=== PATIENT | female | born 1950 | race Caucasian/White ===

== ENCOUNTER 2024-10-03 07:33 | Inpatient (IN) ==
--- NOTE | 2024-09-15 12:53 | PAT Medication Instructions ---
Medication Instructions Date of Service September 15, 2024 Home Medications B-complex with vitamin C 1 tab PO DAILY acetaminophen 650 mg tablet,extended release 650 mg PO HS aspirin 81 mg capsule 81 mg PO QAM atorvastatin 10 mg tablet 10 mg PO HS bupropion HCl 300 mg 24 hr tablet, extended release 300 mg PO QAM cholecalciferol (vitamin D3) 50 mcg (2,000 unit) capsule (Vitamin D3) 50 mcg PO QAM doxepin 75 mg capsule 75 mg PO HS eszopiclone 3 mg tablet 3 mg PO HS loperamide 2 mg capsule 1 mg PO Q2D kjgmiazz-vhk-tieh-FA-Ca carb-vit K 18 mg iron-400 mcg-500 mg tablet 1 tab PO DAILY prazosin 1 mg capsule 1 mg PO HS turmeric root extract 500 mg capsule 500 mg PO QAM venlafaxine 150 mg tablet,extended release 24 hr 150 mg PO QAM venlafaxine 75 mg tablet 75 mg PO QAM ASK your prescriber and surgeon aspirin 81 mg capsule 81 mg PO QAM STOP taking 2 weeks before surgery (or as soon as possible if surgery is within 2 weeks) turmeric root extract 500 mg capsule 500 mg PO QAM DO NOT take the morning of surgery B-complex with vitamin C 1 tab PO DAILY cholecalciferol (vitamin D3) 50 mcg (2,000 unit) capsule (Vitamin D3) 50 mcg PO QAM loperamide 2 mg capsule 1 mg PO Q2D pvclrboa-vld-ifxb-FA-Ca carb-vit K 18 mg iron-400 mcg-500 mg tablet 1 tab PO DAILY Take morning of surgery With a small sip of water, OTHERWISE NOTHING TO EAT OR DRINK AFTER MIDNIGHT: bupropion HCl 300 mg 24 hr tablet, extended release 300 mg PO QAM venlafaxine 150 mg tablet,extended release 24 hr 150 mg PO QAM venlafaxine 75 mg tablet 75 mg PO QAM Take evening before surgery acetaminophen 650 mg tablet,extended release 650 mg PO HS atorvastatin 10 mg tablet 10 mg PO HS doxepin 75 mg capsule 75 mg PO HS eszopiclone 3 mg tablet 3 mg PO HS prazosin 1 mg capsule 1 mg PO HS Other Notes If you have any questions please call us at [phone] or [phone] or [phone] or [phone]
--- NOTE | 2024-09-18 13:19 | Anesthesiology Consultation ---
Date of Service September 18, 2024 Assessment & Plan (1) Encounter for pre-operative examination: Chart Review Chart Review: Acceptable Risk for Surgery (pending surgeon ordered PCP clearance ) and Patient seen in Pre Admission Testing - Awaiting PCP clearance 09/29/24 (Emma Toth) - please fax preop testing to PCP for review Per PAT appt on 09/18/24, no recent illness/disease exposures, illness related symptoms, or recent illness/disease positive tests. Will leave to surgeon's discretion if preop Covid testing needed Teaching & Discussion Pre-Anesthesia Teaching/Discussion Notes: Instructed NPO after midnight before surgery,except medications with 15 cc of water. Medication instructions provided according to the PAT guidelines. History Surgery Operation Date: 10/03/24 11:35 Proposed Procedures p L3-L4 Decompression and Fusion - Torres Stoddard, Height/Weight Height: 5 ft 7 in Weight: 78.9 kg Allergies Allergy/AdvReac Type Severity Reaction Status Date / Time Sulfa (Sulfonamide Allergy Hives Verified 09/16/24 15:25 Antibiotics) tetracycline Allergy Unknown Verified 09/16/24 15:25 Medications Home Medications Medication Instructions Recorded Confirmed Last Taken B-complex with vitamin C 1 tab PO DAILY 09/15/24 09/15/24 Unknown acetaminophen 650 mg 650 mg PO HS 09/15/24 09/15/24 Unknown tablet,extended release aspirin 81 mg capsule 81 mg PO QAM 09/15/24 09/15/24 Unknown atorvastatin 10 mg tablet 10 mg PO HS 09/15/24 09/15/24 Unknown bupropion HCl 300 mg 24 hr tablet, 300 mg PO QAM 09/15/24 09/15/24 Unknown extended release cholecalciferol (vitamin D3) 50 50 mcg PO QAM 09/15/24 09/15/24 Unknown mcg (2,000 unit) capsule (Vitamin D3) doxepin 75 mg capsule 75 mg PO HS 09/15/24 09/15/24 Unknown eszopiclone 3 mg tablet 3 mg PO HS 09/15/24 09/15/24 Unknown loperamide 2 mg capsule 1 mg PO Q2D 09/15/24 09/15/24 Unknown jdfjcbbz-srl-cknh-FA-Ca carb-vit K 1 tab PO DAILY 09/15/24 09/15/24 Unknown 18 mg iron-400 mcg-500 mg tablet prazosin 1 mg capsule 1 mg PO HS 09/15/24 09/15/24 Unknown turmeric root extract 500 mg 500 mg PO QAM 09/15/24 09/15/24 Unknown capsule venlafaxine 150 mg tablet,extended 150 mg PO QAM 09/15/24 09/15/24 Unknown release 24 hr venlafaxine 75 mg tablet 75 mg PO QAM 09/15/24 09/15/24 Unknown Past Medical History Medical History History of asthma prn inh > not used since summer 2023 History of COVID-19 2019 or 2020, no residual symptoms History of depression Hx of gastroesophageal reflux (GERD) well controlled and stable Hx of hyperlipidemia Hx of insomnia Hx of irritable bowel syndrome Hx of migraines Mood swings hx Exercise / Class Metabolic Activity III < 4 Walking/Shop/Light housework (one flight of stairs- no chest pain or SOB- goes slow ) Past Surgical History Surgical History History of bilateral tubal ligation History of esophagogastroduodenoscopy (EGD) History of Alexy fundoplication ~2019 History of total right knee replacement Hx laparoscopic cholecystectomy Hx of bilateral cataract extraction Hx of colonoscopy Hx of right inguinal hernia repair Hx of thumb surgery rt hand Hx of tonsillectomy Past Anesthesia History No Hx of Anesthesia Complications and No Family Hx of Anesthesia Complications History of PONV No Hx of PONV and No Hx of Motion Sickness Social History Smoking Status: Never smoker Do You Dip or Chew Tobacco: No Hx Alcohol Use: Yes Alcohol type: wine alcohol intake frequency: holidays/special occasions only Hx Substance Use: No Review of Systems - Chronic cough - just in the snoring - Snoring - hx of sleep study- 30 years ago- no NEERAJ Patient denies chest pain, shortness of breath, dyspnea on exertion, wheezing, palpitations. No hx of seizures, stroke, VA. No hx of blood clots or blood transfusions Physical Exam Vital Signs VITALS BP 114/67 P 81 TEMP 98.1. SP02 96% RESP 16 Constitutional no acute distress ENMT Mouth: no TMJ clicking Thyromental Distance: > or= 3.5 Finger Breadths (4.0) Mallampati Class: II (smaller mouth ) Missing side teeth Neck + limited neck extension (mild) Respiratory normal respiratory effort; no respiratory distress Auscultation: lungs clear to auscultation bilaterally; no wheezes Cardiovascular Rate/Rhythm: regular rate and regular rhythm Heart Sounds: no murmur Vessels: no carotid bruit Musculoskeletal Spine: no pain with cervical ROM Extremities: extremities normal to inspection Psychiatric Orientation: alert Lab Results Anesthesia Preop Results Results Anesthesia Widget: WBC 7.91 K/ul (4.8-10.8) 09/18/24 Hgb 11.4 g/dl (12.0-16.0) L 09/18/24 Hct 34.9 % (37.0-47.0) L 09/18/24 Plt 308 K/uL (130-400) 09/18/24 Na 139 mmol/L (136-145) 09/18/24 K 3.7 mmol/L (3.5-5.1) 09/18/24 Cl 105 mmol/L (98-107) 09/18/24 CO2 26 mmol/L (21-32) 09/18/24 BUN 13 mg/dl (6-23) 09/18/24 Creat 1.06 mg/dl (0.6-1.2) 09/18/24 Glucose Level 104 mg/dl (70-99(Fasting)) H 09/18/24 PT 10.8 Seconds (9.0-12.0) 09/18/24 PTT 24 Seconds (21-31) 09/18/24 INR 1.0 (0.9-1.1) 09/18/24 Urine Color Dark Yellow 09/18/24 Urine Appearance Clear (Clear) 09/18/24 Urine pH 5.5 (4.5-7.5) 09/18/24 Urine Specific [place] 1.011 (1.000-1.030) 09/18/24 Urine Protein Negative (Negative) 09/18/24 Urine Glucose (UA) Negative (Negative) 09/18/24 Urine Ketones Trace (Negative) H 09/18/24 Urine Blood Negative (Negative) 09/18/24 Urine Nitrite Negative (Negative) 09/18/24 Urine Bilirubin Negative (Negative) 09/18/24 Urine Urobilinogen Negative (Negative) 09/18/24 Urine Leukocyte Esterase Trace (Negative) H 09/18/24 Urine WBC (Auto) 0-5 /hpf (0-5) 09/18/24 Urine RBC (Auto) 6-10 /hpf (0-2) H 09/18/24 Urine Hyaline Casts (Auto) 3-5 /lpf (0-2) H 09/18/24 Urine Epithelial Cells (Auto) 0-2 /hpf (0-2) 09/18/24 Urine Bacteria (Auto) None Seen (None Seen) 09/18/24 Blood Type A Positive 09/18/24 Antibody Screen NEGATIVE 09/18/24 Testing Electrocardiogram Date: 09/18/24 Findings: + NSR @ (78bpm) Normal EKG per cardio Chest X-Ray Date: 09/18/24 Findings: + NAD FINDINGS: Heart size and pulmonary vasculature are normal. No consolidation or p leural effusion. There is mild scoliosis.
[2024-10-03] MEDS: LR 15ML/HR IV SCH (07:58)
[2024-10-03] MEDS: VANCOMYCIN HCL 1,250 MG in SODIUM CHLORIDE 0.9% 250 ML IV SCH (07:58)
[2024-10-03] MEDS ORDERED: KETAMINE HCL 10MG/ML SYR ONE (08:03)
[2024-10-03] MEDS: LR 60ML/HR IV SCH (08:04)
[2024-10-03] MEDS ORDERED: MIDAZOLAM HCL 1 MG/ML 2ML VIAL ONE (08:07)
[2024-10-03] MEDS ORDERED: ROCURONIUM BROMIDE 10 MG/ML 5 ML VIAL IV ONE ×2 (08:07→10:07)
[2024-10-03] MEDS ORDERED: DEXAMETHASONE SOD INJ 4 MG/ML VIAL ONE ×2 (08:07→09:20)
[2024-10-03] MEDS ORDERED: LARYING-O-JET KIT (LTA) ONE (08:07)
[2024-10-03] MEDS ORDERED: PROPOFOL IV EMULSION 10 MG/ML 20 ML VIAL IV ONE (08:07)
[2024-10-03] MEDS ORDERED: LIDOCAINE 2% 2 ML VIAL/AMP(20MG/ML) INFIL ONE (08:07)
[2024-10-03] MEDS ORDERED: ONDANSETRON INJ 2 MG/ML 2 ML VIAL ONE (08:07)
[2024-10-03] MEDS ORDERED: HYDROmorphone INJ 1 MG/ML SYRINGE IV PRN ×2 (08:11→14:32)
[2024-10-03] MEDS ORDERED: ATROPINE SULFATE 0.1 MG/ML 10ML SYR IV PRN (08:11)
[2024-10-03] MEDS: GABAPENTIN 300 MG CAP PO SCH (08:18)
[2024-10-03] MEDS: ACETAMINOPHEN 500 MG TAB PO SCH (08:18)
[2024-10-03] MEDS: CeleBREX 200 MG CAP PO SCH (08:19)
--- NOTE | 2024-10-03 08:31 | History & Physical Bridge Note ---
Date of Service October 03, 2024 History & Physical Bridge Note I have examined the patient, reviewed the History & Physical and in the interval since the performance of the History & Physical I have noted the following changes of clinical significance: no changes noted
--- NOTE | 2024-10-03 08:32 | History & Physical Report ---
Date of Service October 03, 2024 Assessment & Plan (1) Other spondylosis with radiculopathy, lumbar region: Plan: L3-L4 decompression and fusion History of Present Illness Chief Complaint: Back and leg Primary Care Provider: NO PCP This is a 84-year-old female presents chronic persistent back and leg pain post with nonoperative care is here for surgical intervention. Allergies Allergy/AdvReac Type Severity Reaction Status Date / Time Sulfa (Sulfonamide Allergy Hives Verified 10/03/24 08:14 Antibiotics) tetracycline Allergy Unknown Verified 10/03/24 08:14 Home Medications Medication Instructions Recorded Confirmed Type B-complex with vitamin C 1 tab PO DAILY 09/15/24 10/03/24 History acetaminophen 650 mg 650 mg PO HS 09/15/24 10/03/24 History tablet,extended release aspirin 81 mg capsule 81 mg PO QAM 09/15/24 10/03/24 History atorvastatin 10 mg tablet 10 mg PO HS 09/15/24 10/03/24 History bupropion HCl 300 mg 24 hr tablet, 300 mg PO QAM 09/15/24 10/03/24 History extended release (Wellbutrin XL) cholecalciferol (vitamin D3) 50 50 mcg PO QAM 09/15/24 10/03/24 History mcg (2,000 unit) capsule (Vitamin D3) doxepin 75 mg capsule 75 mg PO HS 09/15/24 10/03/24 History eszopiclone 3 mg tablet (Lunesta) 3 mg PO HS 09/15/24 10/03/24 History loperamide 2 mg capsule 1 mg PO Q2D 09/15/24 10/03/24 History sribpgud-ktd-njfs-FA-Ca carb-vit K 1 tab PO DAILY 09/15/24 10/03/24 History 18 mg iron-400 mcg-500 mg tablet prazosin 1 mg capsule 1 mg PO HS 09/15/24 10/03/24 History turmeric root extract 500 mg 500 mg PO QAM 09/15/24 10/03/24 History capsule venlafaxine 150 mg tablet,extended 150 mg PO QAM 09/15/24 10/03/24 History release 24 hr venlafaxine 75 mg tablet 75 mg PO QAM 09/15/24 10/03/24 History Past Med/Surg History Problem List (Updated 07/11/25 @ 08:31 by Torres Stoddard, DO) Other spondylosis with radiculopathy, lumbar region Encounter for pre-operative examination Medical History History of asthma prn inh > not used since summer 2023 History of COVID-19 2019 or 2020, no residual symptoms History of depression Hx of gastroesophageal reflux (GERD) well controlled and stable Hx of hyperlipidemia Hx of insomnia Hx of irritable bowel syndrome Hx of migraines Mood swings hx Surgical History History of bilateral tubal ligation History of esophagogastroduodenoscopy (EGD) History of Alexy fundoplication ~2019 History of total right knee replacement Hx laparoscopic cholecystectomy Hx of bilateral cataract extraction Hx of colonoscopy Hx of right inguinal hernia repair Hx of thumb surgery rt hand Hx of tonsillectomy Social History (System 09/16/24 @ 15:25 by Cristel Faria) Smoking Status: Never smoker Second Hand Exposure: No; Do You Dip or Chew Tobacco: No; Tobacco Cessation Education Requested by Patient: No Hx Alcohol Use: Yes Alcohol type: wine Hx Substance Use: No Preferred Language: Greek Communication Ability: Effective Web Page Developer Required: No Beliefs That Will Affect Care: None Current Living Situation: Spouse Other Information That Helps Us Care for You: No Feels Safe at Home: Yes Safety Concerns: Feels Safe At This Time Assistive Devices: Glasses Physical Exam Physical Exam: Patient is alert and oriented Heart regular rhythm Lungs clear
[2024-10-03] MEDS ORDERED: SUGAMMADEX SODIUM 200 MG/2 ML VIAL IV ONE (09:23)
[2024-10-03] MEDS ORDERED: PHENYLEPHRINE 100MCG/ML 5ML SYR ONE (09:52)
[2024-10-03] MEDS: ceFAZolin 330 MG/ML 1 GM VIAL ONE (10:38)
[2024-10-03] MEDS: BUPIVACAINE/EPINEPHRINE 0.25% 1:200,000 30 ML VIAL ONE (10:38)
[2024-10-03] MEDS: FLOSEAL HEMOSTATIC MATRIX 10ML TOP ONE (10:40)
--- NOTE | 2024-10-03 10:54 | Fluoroscopy Report ---
FL lumbar spine 2-3V CLINICAL HISTORY: L2-L4 DECOMPRESSION AND FUSION COMPARISON STUDY: No previous studies for comparison. Fluoroscopy time: 25 seconds. Number of fluoroscopic images: 2 Ka,r: 16.33 mGy. FINDINGS: Fluoroscopy was provided during L2-L4 posterior decompression and bilateral pedicle screw f usion. There are interbody spacers at the L2-L3 and L3-L4 levels. IMPRESSION: Fluoroscopy provided during L2-L4 decompression and fusion. ACT 112: Negative or not required by law. Electronically signed by: Skip Lee M.D. 10/03/2024 10:52 AM
--- NOTE | 2024-10-03 10:56 | Operative Report ---
Post Operative Report Pre & Post Diagnosis Operation Date: 10/03/24 09:05 Pre-Op Diagnosis: #1 lumbar spondylosis with radiculopathy #2 lumbar neuroforaminal stenosis with radiculopathy #3 degenerative scoliosis Post-Op Diagnosis: Same I identified the patient and participated in the time-out.: Yes Procedure Operation Date: 10/03/24 09:05 Actual Procedures #1 lumbar decompression with bilateral medial facetectomies and foraminotomies L2-L3 L3-L4 care #2 posterior spinal fusion L2-L3 L3-L4. #3 placement posterior instrumentation L2-L4 using camber. #4 interbody fusion L2-L3 L3-L4. #5 placement Spira 12 x 26 mm at L2-L3 and 10 x 26 mm at L3-L4. #6 placement locally harvested morselized autograft and posterior gutters. #7 placement of infuse collagen sponge combined with Koros in the posterior lateral gutters and os design interbody space. #8 application of versa wrap of the exposed dura. Surgeon Torres Stoddard, Electrician Ship Natalio Burris Estimated Blood Loss 100 Findings Consistent with Post-Op Diagnosis Specimens None Indications This is a 74-year-old female presents by manage diagnosis of failed course of nonoperative care is here for surgical invention. Description of Procedure Patient was met with identified informed consent obtained. Patient was then taken to the operative suite underwent intubation placed in a prone position on the Andriy table on top of the Luis A frame. All bony prominences well-padded eyes inspected to ensure no external pressure placed upon them. This point lumbar spine was prepped and draped no sterile fashion. AP and lateral x-rays were taken prior to incision. I noted significant reduction of the L2-L3-L4 lev els in the supine position compared to her standing films. Sharp dissection assisted Bovie cautery subsequent then performed down to and exposing the lamina transverse processes of L2-L3-L4 bilaterally. Marked hypermobility of the 2 3 level was noted contributing to neuroforaminal stenosis on the left concordant with her radicular patterns. Subsequently I elected to incorporate the L2-3 level into the procedure to avoid continued loss of alignment and radiculopathy. A complete laminectomy of L3 was performed including bilateral medial facetectomies and foraminotomies addressing severe neuroforaminal disease followed by complete laminectomy of L2 with bilateral medial facetectomies and foraminotomies. Pedicle screws then placed at L2-L3-L4 bilaterally with assistance of fluoroscopy in the process nia placed. By way of transforaminal approach on the left a complete discectomy of L3-L4 was performed endplates corrected to subcortical bleeding bone and a 10 x 26 mm spiral cage filled with os design bone graft tapped in position. Then proceeded to the L [address] by way of a transfer approach to the left complete discectomy was performed. Endplates guided to subcortical bleeding bone. A 12 x 26 mm spiral cage filled with os design tapped in position. Rods were then locked in the final position bilaterally. Reduction of the scoliosis and foramen widely decompressed. Transverse processes of L2-L3-L4 burred to subcortical bleeding bone. Infuse collagen sponge, with Koros and local autograft placed in the posterior gutters. Versa wrap placed over the exposed dura. 15 round TANGELA drain inserted. The incision was then closed with 1 Vicryl the fascia 2-0 Vicryl subcutaneously and 4-0 Monocryl for final skin closure. Steri-Strips sterile dressing placed. Patient waken taken to PACU in stable condition. Please note Natalio record was present at the entire procedure and on the patient positioning complex portion of the surgery and final skin closure. Im ordering 10 grams of Collagen Powder ([facility] A6010 Primary Dressing) and 10 bordered super absorbent ([facility] A6196 Secondary Dressing) to treat an incision wound that was caused by a spine procedure. The incision is approximately 2 cm(W) x 2 cm(L) down to the spinal column and epidural space 2 cm (D) in size and is a full thickness wound showing no signs of infection. Collagen comes in 1 gram packets so 10 packets were ordered. Given the size of the wound, with moderate exudate I chose to order a 10 day supply. The patient will be provided instructions for proper application of the collagen wound kit. The patient will be asked to apply the collagen powder daily and then cover it with sterile dressings dispensed. Collagen was selected as I expect the collagen to attract monocytes and fibroblasts, act as a sacrificial substrate for MMPs, and ultimately proved a matrix for tissue and vessel growth. The collagen will act as a primary dressing in this scenario. It is medically necessary for proper healing of these wounds to improve bioavailability and contact with each wound surface, this is also to help prevent infection of wounds and promote healing ultimately leading to a better healing outcome and limit the risk of infection. I attest to the content of the Intraoperative Record and any orders documented therein. Any exceptions are noted below.
[2024-10-03] MEDS: ONDANSETRON INJ 2 MG/ML 2 ML VIAL IV PRN ×2 (12:10→19:08)
[2024-10-03] MEDS: FAMOTIDINE 20MG IV PUSH 20 MG/5 ML SYR IV ONE (12:25)
[2024-10-03] MEDS: HYDROmorphone INJ 2 MG/ML SYR/VIAL IV PRN (12:37)
[2024-10-03] MEDS: RACEPINEPHRINE 2.25% NEBU SOLN 0.5 ML VIAL ONE (12:40)
--- NOTE | 2024-10-03 14:25 | Anesthesiology Progress Note ---
Date of Service October 03, 2024 Anesthesia Post Procedure Vital Signs Vital Signs: Temp Pulse Resp BP BP Pulse Ox O2 Del Method 10/03/24 14:00 82 12 117/72 96 Oxymask 10/03/24 13:45 82 12 129/67 96 Oxymask 10/03/24 13:30 83 12 127/91 98 Oxymask 10/03/24 13:15 80 12 151/84 H 96 Oxymask 10/03/24 13:00 75 18 163/82 H 100 Oxymask 10/03/24 12:45 84 24 161/93 H 100 Nasal Cannula 10/03/24 12:30 82 24 158/62 H 100 Nasal Cannula 10/03/24 12:15 82 18 168/99 H 98 Nasal Cannula 10/03/24 12:05 80 22 163/65 H 100 Nasal Cannula 10/03/24 11:55 76 16 159/73 H 98 Nasal Cannula 10/03/24 11:45 36.3 C L 79 20 157/72 H 100 Nasal Cannula 10/03/24 11:35 78 14 159/62 H 98 Oxymask 10/03/24 11:25 79 18 158/65 H 97 Oxymask 10/03/24 11:17 36.0 C L 88 16 166/76 H 95 Oxymask 10/03/24 08:22 36.7 C 73 18 99/74 L 96 Room Air O2 Flow Rate 10/03/24 14:00 4 10/03/24 13:45 5 10/03/24 13:30 7 10/03/24 13:15 10 10/03/24 13:00 4 10/03/24 12:45 4 10/03/24 12:30 4 10/03/24 12:15 2 10/03/24 12:05 2 10/03/24 11:55 2 10/03/24 11:45 2 10/03/24 11:35 4 10/03/24 11:25 6 10/03/24 11:17 10 10/03/24 08:22 Pain Intensity Left Leg: Pain Intensity: 2 Bilateral Leg: Pain Intensity: 4 Transfer of Care Handoff Completed per policy Notes Mental Status: alert / awake / arousable Patient Amnestic to Procedure: Yes Nausea / Vomiting: adequately controlled Pain: adequately controlled Airway Patency, RR, SpO2: stable & adequate BP & HR: stable & adequate Hydration State: stable & adequate Anesthetic Complications: no major complications apparent and Pt Satisfied with anesthetic care
[2024-10-03] MEDS ORDERED: DO NOT ADMINISTER FLU VACCINE PRN (14:32)
[2024-10-03] MEDS ORDERED: FAMOTIDINE 20 MG TAB PO PRN (14:32)
[2024-10-03] MEDS ORDERED: LORazepam 0.5 MG TAB PO PRN (14:32)
[2024-10-03] MEDS ORDERED: HYDROmorphone INJ 0.5 MG/0.5 ML SYR IV PRN (14:32)
[2024-10-03] MEDS ORDERED: NALOXONE HCL 0.4 MG/1 ML VIAL/CARP IV PRN (14:32)
[2024-10-03] MEDS ORDERED: METOCLOPRAMIDE HCL INJ 5 MG/ML 2 ML VIAL IV PRN (14:32)
[2024-10-03] MEDS ORDERED: PROMETHAZINE 12.5 MG/50.5 ML BAG IV PRN (14:32)
[2024-10-03] MEDS ORDERED: ONDANSETRON 4 MG OD TAB PO PRN (14:32)
[2024-10-03] MEDS ORDERED: ALUMINUM/MAGNESIUM SUSP 30 ML UDC PO PRN (14:32)
[2024-10-03] MEDS ORDERED: diphenhydrAMINE Capsule 25 MG CAP PO PRN (14:32)
[2024-10-03] MEDS ORDERED: SOD PHOSPHATE/SOD BIPHOSPHATE ENEMA 132 ML BTL PR PRN (14:32)
[2024-10-03] MEDS ORDERED: DO NOT ADMINISTER PNEUMOCOCCAL VACCINE PRN (14:32)
[2024-10-03] MEDS ORDERED: MAGNESIUM HYDROXIDE SUSP 30 ML UDC PO PRN (14:32)
--- NOTE | 2024-10-03 14:56 | Consultation ---
Date of Consultation October 03, 2024 Assessment & Plan (1) Hx of gastroesophageal reflux (GERD): (2) History of asthma: (3) History of depression: (4) Hx of irritable bowel syndrome: (5) Hx of hyperlipidemia: (6) Hx of insomnia: Plan Assessment and plan: Lumbar radiculopathy S/p lumbar decompression & fusion: Pain control/PT/OT/DVT prophylaxis per primary team Acute hypoxia Lethargy s/p anesthesia- improving On 4 L postoperatively, received IV Ativan and Dilaudid postop Will check VBG and lab work for completeness and continue to monitor Hx HLD/HTN: -continue statin/prazosin Hx depression and anxiety: -continue wellbutrin/doxepin/venlafaxine We will continue to follow with you A total of 45 minutes was spent on chart review/reviewing diagnostic data/facilitating plan of care/discussion with consultants Full code DVT prophylaxis: Per primary team Supervising Physician Co-Signing Physician Notes Attending Addendum: Case reviewed with the advanced practitioner. I have personally performed a history and physical examination on the patient. I have reviewed the advanced practitioner's documentation on the date of service referenced in note, and I agree with, and take responsibility for the plan of care. please refer to her notes for full details patient seen and examined, records reviewed by myself as well on exam, patient seen resting in bed, oriented x 3, answering questions appropriately, somewhat drowsy but conversant, able to sit up no other symptoms VS noted and reviewed oriented x 3, not in distress, speaks in sentences with no effort nor accessory muscle use normal rate, regular rhythm, no murmurs clear breath sounds bilaterally non distended, soft, nontender no bipedal edema, erythema, warmth no neuro deficits all labs, imaging noted and reviewed ASSESSMENT AND PLAN> ACUTE HYPOXIC, HYPERCAPNEIC RESPIRATORY FAILURE LIKELY SECONDARY TO DILAUDID, ATIVAN, ANESTHESIA VBG ph 2.5, CO2 57, PO2 69 at the time of my exam, patient already more awake, conversant HOLD Narcotics, benzodiazepines for now Encouraged to take deep breaths, incentive spirometer Obtain chest x-ray other diagnoses and plan of care as per advanced practitioner's notes I spent a total of 40 minutes coordinating, documenting, and providing care for this patient, excluding time spent in the performance of separately billed services or time spent by another provider/QHP. Perico Coates MD History of Present Illness Requesting Physician: Dr. Stoddard Reason for Consultation: post op medical management Attending Physician: Torres Stoddard, History of Present Illness The patient is a 74-year-old female with a past medical history of depression, HLD, scoliosis, arthritis, HPV who presents to hospital on 10/03/2024 s/p lumbar decompression and fusion L2-L4. We are asked to see the patient for postoperative medical management. On initial exam, patient lethargic but arousable. Patient is awake alert and oriented time. She reports her pain is controlled. Patient answers briefly and then goes back to sleep. On follow up exam, patient is now awake and asking for food, denies any complaints Allergies Allergy/AdvReac Type Severity Reaction Status Date / Time Sulfa (Sulfonamide Allergy Hives Verified 10/03/24 08:14 Antibiotics) tetracycline Allergy Unknown Verified 10/03/24 08:14 Home Medications Medication Instructions Recorded Confirmed Type B-complex with vitamin C 1 tab PO DAILY 09/15/24 10/03/24 History acetaminophen 650 mg 650 mg PO HS 09/15/24 10/03/24 History tablet,extended release aspirin 81 mg capsule 81 mg PO QAM 09/15/24 10/03/24 History atorvastatin 10 mg tablet 10 mg PO HS 09/15/24 10/03/24 History bupropion HCl 300 mg 24 hr tablet, 300 mg PO QAM 09/15/24 10/03/24 History extended release (Wellbutrin XL) cholecalciferol (vitamin D3) 50 50 mcg PO QAM 09/15/24 10/03/24 History mcg (2,000 unit) capsule (Vitamin D3) doxepin 75 mg capsule 75 mg PO HS 09/15/24 10/03/24 History eszopiclone 3 mg tablet (Lunesta) 3 mg PO HS 09/15/24 10/03/24 History loperamide 2 mg capsule 1 mg PO Q2D 09/15/24 10/03/24 History [id number] carb-vit K 1 tab PO DAILY 09/15/24 10/03/24 History 18 mg iron-400 mcg-500 mg tablet prazosin 1 mg capsule 1 mg PO HS 09/15/24 10/03/24 History turmeric root extract 500 mg 500 mg PO QAM 09/15/24 10/03/24 History capsule venlafaxine 150 mg tablet,extended 150 mg PO QAM 09/15/24 10/03/24 History release 24 hr venlafaxine 75 mg tablet 75 mg PO QAM 09/15/24 10/03/24 History Patient History Medical History History of asthma prn inh > not used since summer 2023 History of COVID-19 2019 or 2020, no residual symptoms History of depression Hx of gastroesophageal reflux (GERD) well controlled and stable Hx of hyperlipidemia Hx of insomnia Hx of irritable bowel syndrome Hx of migraines Mood swings hx Surgical History History of bilateral tubal ligation History of esophagogastroduodenoscopy (EGD) History of Alexy fundoplication ~2019 History of total right knee replacement Hx laparoscopic cholecystectomy Hx of bilateral cataract extraction Hx of colonoscopy Hx of right inguinal hernia repair Hx of thumb surgery rt hand Hx of tonsillectomy Social History (System 09/16/24 @ 15:25 by Cristel Faria) Smoking Status: Never smoker Second Hand Exposure: No; Do You Dip or Chew Tobacco: No; Tobacco Cessation Education Requested by Patient: No Hx Alcohol Use: Yes Alcohol type: wine Hx Substance Use: No Preferred Language: Georgian Communication Ability: Effective 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 Required: No Beliefs That Will Affect Care: None Current Living Situation: Spouse Other Information That Helps Us Care for You: No Feels Safe at Home: Yes Safety Concerns: Feels Safe At This Time Assistive Devices: Glasses Review of Systems Review of Systems: All systems reviewed & are unremarkable except as noted in HPI & below Physical Exam Constitutional: WD/WN, vitals as above Eyes: PERRL, conjunctivae normal, anicteric sclerae ENMT: external ear and nose normal, oropharynx normal Neck: trachea midline, no thyromegaly Respiratory: normal respiratory effort, lungs clear to auscultation Cardiovascular: RRR, no murmur, no edema Gastrointestinal (Abdomen): normal bowel sounds, soft, nontender, no hepatosplenomegaly Musculoskeletal: no cyanosis or clubbing, extremities motor strength 5/5 Skin: no rashes, warm and dry Neurologic: PERRL, EOMI, accommodation nl, no face palsy, no dysarthria (Lethargic but arousable) Lymphatic: no cervical or axillary lymphadenopathy Results & Data Vital Signs (Past 12 Hours) Vital Signs Temp Pulse Pulse Resp BP BP Pulse Ox 10/03/24 14:20 36.4 C L 85 12 124/75 96 10/03/24 14:00 82 12 117/72 96 10/03/24 13:45 82 12 129/67 96 10/03/24 13:30 83 12 127/91 98 10/03/24 13:15 80 12 151/84 H 96 10/03/24 13:00 75 18 163/82 H 100 10/03/24 12:45 84 24 161/93 H 100 10/03/24 12:30 82 24 158/62 H 100 10/03/24 12:15 82 18 168/99 H 98 10/03/24 12:05 80 22 163/65 H 100 10/03/24 11:55 76 16 159/73 H 98 10/03/24 11:45 36.3 C L 79 20 157/72 H 100 10/03/24 11:35 78 14 159/62 H 98 10/03/24 11:25 79 18 158/65 H 97 10/03/24 11:17 36.0 C L 88 16 166/76 H 95 10/03/24 08:22 36.7 C 73 18 99/74 L 96 O2 Del Method O2 Flow Rate 10/03/24 14:20 Oxymask 4 10/03/24 14:00 Oxymask 4 10/03/24 13:45 Oxymask 5 10/03/24 13:30 Oxymask 7 10/03/24 13:15 Oxymask 10 10/03/24 13:00 Oxymask 4 10/03/24 12:45 Nasal Cannula 4 10/03/24 12:30 Nasal Cannula 4 10/03/24 12:15 Nasal Cannula 2 10/03/24 12:05 Nasal Cannula 2 10/03/24 11:55 Nasal Cannula 2 10/03/24 11:45 Nasal Cannula 2 10/03/24 11:35 Oxymask 4 10/03/24 11:25 Oxymask 6 10/03/24 11:17 Oxymask 10 10/03/24 08:22 Room Air Diagnostic Findings Impressions Lumbar Spine X-Ray 10/03/24 09:05 FL lumbar spine 2-3V CLINICAL HISTORY: L2-L4 DECOMPRESSION AND FUSION COMPARISON STUDY: No previous studies for comparison. Fluoroscopy time: 25 seconds. Number of fluoroscopic images: 2 Ka,r: 16.33 mGy. FINDINGS: Fluoroscopy was provided during L2-L4 posterior decompression and bilateral pedicle screw fusion. There are interbody spacers at the L2-L3 and L3- L4 levels. IMPRESSION: Fluoroscopy provided during L2-L4 decompression and fusion. ACT 112: Negative or not required by law. Electronically signed by: Skip Lee M.D. 10/03/2024 10:52 AM
[2024-10-03 16:22] LABS: Base Excess VBG -3.1 mEq/L; HCO3 VBG 25 mmol/L; Oxygen Saturation VBG 93.0 %; PCO2 VBG 57 mmHg (38-50); PO2 VBG 69 mmHg; pH VBG 7.25 (7.36-7.41)
[2024-10-03 16:27] LABS: Hematocrit (blood only) 31.9 % (37.0-47.0); Hemoglobin 10.4 g/dl (12.0-16.0); Mean Corpuscular Hemoglobin 29.9 pg (25.0-34.0); Mean Corpuscular Volume 91.7 fL (80.0-100.0); Platelet Count 278 K/uL (130-400); RDW Standard Deviation 47.5 fL (36.4-46.3); Red Blood Count 3.48 M/uL (4.20-5.40); White Blood Count 14.21 K/ul (4.8-10.8)
[2024-10-03 16:43] LABS: Immature Granulocytes # (auto) 0.08 K/uL (0.01-0.20); Immature Granulocytes % (auto) 0.6 %
[2024-10-03 16:46] LABS: Alanine Aminotransferase 14.0 U/L (7-52); Albumin Globulin Ratio 1.2 (0.9-2); Alkaline Phosphatase 63.0 U/L (34-104); Anion Gap 5.0 (3-11); Bilirubin,Total 0.2 mg/dl (0.2-1.0); Blood Urea Nitrogen 15.0 mg/dl (6-23); Calcium 8.4 mg/dl (8.6-10.3); Carbon Dioxide 26.0 mmol/L (21-32); Chloride 107.0 mmol/L (98-107); Creatinine Clr Calc Pharmacy 72.8 ml/min; Globulin 3.2 gm/dl (2.5-4.0); Glucose 139.0 mg/dl (70-99(Fasting)); Potassium 4.0 mmol/L (3.5-5.1); Sodium 138.0 mmol/L (136-145); Total Protein 7.1 gm/dl (6.0-8.3)
[2024-10-03] MEDS: DOCUSATE SODIUM/SENNA 50/8.6MG TAB PO SCH (21:59)
[2024-10-03] MEDS: PRAZOSIN HCL 1 MG CAP PO SCH (22:01)
[2024-10-03] MEDS: DOXEPIN HCL 75 MG CAPSULE PO SCH (22:01)
[2024-10-03] MEDS: ATORVASTATIN 10 MG TAB PO SCH (22:01)
[2024-10-03] MEDS: ESZOPICLONE 1 MG TAB PO SCH (22:01)
--- NOTE | 2024-10-03 22:45 | XRay Report ---
Exam(s): XR CXR 1 VIEW EXAM: XR Chest, 1 View CLINICAL HISTORY: Reason for exam: hypoxia, post op back surgery. TECHNIQUE: Frontal view of the chest. COMPARISON: Prior chest x-ray from September 18, 2024. FINDINGS: Lungs: Mild to moderate peribronchial thickening of the central lower lobe bronchi. Linear scarring at left lower lobe. No consolidation. Pleural space: Unremarkable. No pneumothorax. Heart: Unremarkable. No cardiomegaly. Mediastinum: Unremarkable. Normal mediastinal contour. Bones/joints: Unremarkable. No acute fracture. IMPRESSION: Bronchitis, which may be of infectious or inflammatory etiologies. No consolidation or pleural effusion. Electronically signed by: Stacey Vasquez MD 10/03/24 22:44 PM
[2024-10-04] MEDS: ACETAMINOPHEN 1,000 MG/100 ML VIAL IV PRN (05:11)
[2024-10-04] MEDS: POLYETHYLENE (MIRALAX) 17 GM PACK PO SCH (05:16)
[2024-10-04 07:03] LABS: Hematocrit (blood only) 30.1 % (37.0-47.0); Hemoglobin 9.5 g/dl (12.0-16.0); Immature Granulocytes # (auto) 0.05 K/uL (0.01-0.20); Immature Granulocytes % (auto) 0.4 %; Mean Corpuscular Hemoglobin 29.0 pg (25.0-34.0); Mean Corpuscular Volume 91.8 fL (80.0-100.0); Platelet Count 253 K/uL (130-400); RDW Standard Deviation 47.6 fL (36.4-46.3); Red Blood Count 3.28 M/uL (4.20-5.40); White Blood Count 12.76 K/ul (4.8-10.8)
[2024-10-04 07:24] LABS: Anion Gap 7.0 (3-11); Blood Urea Nitrogen 12.0 mg/dl (6-23); Calcium 8.3 mg/dl (8.6-10.3); Carbon Dioxide 25.0 mmol/L (21-32); Chloride 104.0 mmol/L (98-107); Creatinine Clr Calc Pharmacy 68.3 ml/min; Glucose 150.0 mg/dl (70-99(Fasting)); Potassium 4.0 mmol/L (3.5-5.1); Sodium 136.0 mmol/L (136-145)
--- NOTE | 2024-10-04 07:39 | Hospitalist Progress Note ---
Date of Service October 04, 2024 Assessment & Plan (1) Hx of gastroesophageal reflux (GERD): (2) History of asthma: (3) History of depression: (4) Hx of irritable bowel syndrome: (5) Hx of hyperlipidemia: (6) Hx of insomnia: (7) Other spondylosis with radiculopathy, lumbar region: Plan Assessment and plan: Lumbar radiculopathy S/p lumbar decompression & fusion: POD#1 s/p decompression and fusion surgery under the care of Dr. Stoddard. Per ortho for pain control, wound care, anticoagulation and activities. Monitor H&H, Hgb 9.5; pre op 10.4. Recheck CBC in AM Continue incentive spirometry, PT/OT when appropriate Amblyopia: Likely secondary to length of surgical procedure from positioning. Denies pain, HAYES, dizziness. She can read items, just blurry Ortho aware; Will monitor. Acute hypoxiaIMPROVED Lethargy s/p anesthesiaIMPROVED On 4 L postoperatively, received IV Ativan and Dilaudid postop Will check VBG and lab work for completeness and continue to monitor VBG pH 7.25, CO2 57, HCO3 25 she has had a sleep study in the past and was deemed unremarkable Does not wear a CPAP Hx HLD/HTN: -continue statin/prazosin Hx depression and anxiety: -continue wellbutrin/doxepin/venlafaxine; continue Disposition: Code: Full code DVT prophylaxis: Per primary team A total of 52 minutes was spent on chart review/reviewing diagnostic data/facilitating plan of care/discussion with consultants Admission and Anticipated Discharge Date Admission Date: October 03, 2024 Supervising Physician Co-Signing Physician Notes Patient is seen and examined at bedside. States feeling well today. Denies any significant pain at surgical site. Also denies any chest pain, dyspnea, nausea, vomiting, abdominal pain. On exam patient is moderately built and nourished, no apparent distress, normocephalic atraumatic, EOMI, normal breath sounds, clear to auscultation, S1-S2, no murmur, no pedal edema, abdomen soft, normal bowel sounds, back: Surgical site in dressing, alert, awake, oriented, grossly no focal deficits. Patient is consulted for postop medical management. Patient had lumbar decompression, fusion surgery by Dr. Stoddard. Postoperative acute blood loss anemia. No indication for blood transfusion currently. Pain control, wound care, activity as per primary team. Monitor TANGELA output, CBC. Wean off of supplemental oxygen as needed. I personally interviewed and examined the patient at bedside. I have reviewed the advanced practitioner's documentation on the date of service referred in note and agree with plan. Patient's care is coordinated with Capri KUMAR. Please refer to the documentation above for details of patient's presentation and for discussion of other issues. I spent a total [id number] coordinating, documenting, and providing care for this patient excluding time spent in the performance of separately billed services or time spent by another provider/QHP. Subjective Pt is sitting in her hospital bedside chair in no apparent distress. C/O B/L blurry vision without headache, dizziness, or auditory changes. Has ambulated to the bathroom and around the room without discomfort. Tolerating advancing of diet. See A/P for further details. Review of Systems Review of Systems: Neuro: (-) Falls, trauma, slurred speech HEENT: (-) HAYES, dizziness, dysphagia, (+) blurry vision CV: (-) CP, palpitations, swelling Resp: (-) SOB GI: (-) appetite changes, N/V/D, bowel changes : (-) urinary changes Skin: (-) rashes Psych: (-) anxiety, depression Physical Exam Physical Exam: Neuro: AAOx4, PERRLA, no aphagia, memory changes, CNII-XII grossly intact HEENT: head normocephalic, moist mucus membranes CV: S1/S2, (-) M/G/R, (-) edema, cap refill < 3 seconds Resp: Lungs CTA in all jones. On RA GI: Abdomen S/NT/ND, Ax4 bowel sounds, (-) CVA tenderness Musculoskeletal: 5/5 B/L UE strength, 5/5 B/L LE strength. Uses a walker Skin: (-) rashes , (-) erythema. Psych: euthymic mood Results & Data Results & Data Vital Signs (Past 12 Hours) Vital Signs Temp Pulse Resp BP Pulse Ox O2 Del Method O2 Flow Rate 10/04/24 06:57 36.4 C L 69 16 116/70 95 Nasal Cannula 2 10/04/24 03:09 36.4 C L 72 18 125/67 99 Nasal Cannula 2 10/04/24 00:11 Nasal Cannula 2 10/03/24 23:30 36.5 C 76 17 118/69 96 Nasal Cannula 2 Laboratory Results Short CBC 10/03/24 10/04/24 Range/Units 16:03 06:01 WBC 14.21 H 12.76 H (4.8-10.8) K/ul Hgb 10.4 L 9.5 L (12.0-16.0) g/dl Hct 31.9 L 30.1 L (37.0-47.0) % Plt Count 278 253 (130-400) K/uL BMP 10/03/24 10/04/24 16:03 06:01 Sodium 138 136 Potassium 4.0 4.0 Chloride 107 104 Carbon Dioxide 26 25 BUN 15 12 Creatinine 0.75 0.80 Glucose 139 H 150 H Calcium 8.4 L 8.3 L Liver Function 10/03/24 Range/Units 16:03 Total Bilirubin 0.2 (0.2-1.0) mg/dl AST 21 (13-39) U/L ALT 14 (7-52) U/L Alkaline Phosphatase 63 (34-104) U/L Albumin 3.9 (3.4-5.0) gm/dl Diagnostic Findings Chest X-Ray 10/03/24 19:38 Exam(s): XR CXR 1 VIEW EXAM: XR Chest, 1 View CLINICAL HISTORY: Reason for exam: hypoxia, post op back surgery. TECHNIQUE: Frontal view of the chest. COMPARISON: Prior chest x-ray from September 18, 2024. FINDINGS: Lungs: Mild to moderate peribronchial thickening of the central lower lobe bronchi. Linear scarring at left lower lobe. No consolidation. Pleural space: Unremarkable. No pneumothorax. Heart: Unremarkable. No cardiomegaly. Mediastinum: Unremarkable. Normal mediastinal contour. Bones/joints: Unremarkable. No acute fracture. IMPRESSION: Bronchitis, which may be of infectious or inflammatory etiologies. No consolidation or pleural effusion. Electronically signed by: Stacey Vasquez MD 10/03/24 22:44 PM
[2024-10-04] MEDS: dexAMETHasone 6 MG in SYRINGE 0 ML IV SCH (07:59)
[2024-10-04] MEDS: ASCORBIC ACID 500 MG TAB PO SCH (07:59)
[2024-10-04] MEDS: CEROVITE ADV FORMULA TAB PO SCH (07:59)
[2024-10-04] MEDS: VENLAFAXINE HCL XR 150 MG CAPXR PO SCH (07:59)
[2024-10-04] MEDS: VENLAFAXINE HCL XR 75 MG CAPXR PO SCH (07:59)
[2024-10-04] MEDS: CHOLECALCIFEROL 25 MCG (1000 UNITS) TAB PO SCH (07:59)
[2024-10-04] MEDS: VITAMIN B COMPLEX TAB PO SCH (07:59)
[2024-10-04] MEDS: ASPIRIN 81 MG ECTAB PO SCH (08:00)
--- NOTE | 2024-10-04 08:40 | Orthopedic Progress Note ---
Date of Service October 04, 2024 Assessment & Plan (1) Other spondylosis with radiculopathy, lumbar region: Plan: At this time initiate physical therapy monitor TANGELA output anticipate discharge home Sunday. Admission and Anticipated Discharge Date Admission Date: October 03, 2024 Subjective Patient's back pain is controlled leg symptoms markedly improved Physical Exam Physical Exam: Patient is sitting up in bed. She is comfortable. Distracted testing. Results & Data Vital Signs (Past 12 Hours) Vital Signs Temp Pulse Resp BP Pulse Ox O2 Del Method O2 Flow Rate 10/04/24 06:57 36.4 C L 69 16 116/70 95 Nasal Cannula 2 10/04/24 03:09 36.4 C L 72 18 125/67 99 Nasal Cannula 2 10/04/24 00:11 Nasal Cannula 2 10/03/24 23:30 36.5 C 76 17 118/69 96 Nasal Cannula 2
[2024-10-04] MEDS ORDERED: VENLAFAXINE HCL 37.5 MG TAB PO SCH (09:00)
[2024-10-04] MEDS: ACETAMINOPHEN 500 MG TAB PO PRN (22:08)
[2024-10-05] MEDS: MELATONIN 3 MG TAB PO PRN (00:11)
[2024-10-05] MEDS ORDERED: MELATONIN 3 MG TAB PO PRN (02:05)
[2024-10-05] MEDS: MELATONIN 3 MG TAB PO STA (02:12)
[2024-10-05 06:07] LABS: Hematocrit (blood only) 29.1 % (37.0-47.0); Hemoglobin 9.3 g/dl (12.0-16.0); Mean Corpuscular Hemoglobin 29.1 pg (25.0-34.0); Mean Corpuscular Volume 90.9 fL (80.0-100.0); Platelet Count 258 K/uL (130-400); RDW Standard Deviation 47.4 fL (36.4-46.3); Red Blood Count 3.20 M/uL (4.20-5.40); White Blood Count 11.46 K/ul (4.8-10.8)
[2024-10-05 06:31] LABS: Anion Gap 5.0 (3-11); Blood Urea Nitrogen 16.0 mg/dl (6-23); Calcium 8.6 mg/dl (8.6-10.3); Carbon Dioxide 30.0 mmol/L (21-32); Chloride 104.0 mmol/L (98-107); Creatinine Clr Calc Pharmacy 71.0 ml/min; Glucose 97.0 mg/dl (70-99(Fasting)); Potassium 3.8 mmol/L (3.5-5.1); Sodium 139.0 mmol/L (136-145)
--- NOTE | 2024-10-05 07:25 | Hospitalist Progress Note ---
Date of Service October 05, 2024 Assessment & Plan (1) Hx of gastroesophageal reflux (GERD): (2) History of asthma: (3) History of depression: (4) Hx of irritable bowel syndrome: (5) Hx of hyperlipidemia: (6) Hx of insomnia: (7) Other spondylosis with radiculopathy, lumbar region: Plan Assessment and plan: Lumbar radiculopathy S/p lumbar decompression & fusion: POD#2 s/p decompression and fusion surgery L2-L4 under the care of Dr. Stoddard. Per ortho for pain control (has not utilized any PRN medications), wound care, anticoagulation and activities. Monitor H&H, Hgb 9.3; pre op 10.4. Continue incentive spirometry, PT/OT when appropriate Procalcitonin negative. Confirm BM prior to DC; if no BM, consider KUB prior to DC Post-Op Anemia: Hgb 9.3 today; baseline pre op 10.4 Likely ISO surgery, continue to monitor. If continues, consider adding anemia panel. Amblyopia: RESOLVED Likely secondary to length of surgical procedure from positioning. Denies pain, HAYES, dizziness. She can read items, just blurry Ortho aware; Will monitor. Acute hypoxiaIMPROVED Lethargy s/p anesthesiaIMPROVED On 4 L postoperatively, received IV Ativan and Dilaudid postop Will check VBG and lab work for completeness and continue to monitor VBG pH 7.25, CO2 57, HCO3 25 she has had a sleep study in the past and was deemed unremarkable Does not wear a CPAP @ home Hx HLD/HTN: Takes statin/prazosin; continue Hx depression and anxiety: -continue wellbutrin/doxepin/venlafaxine; continue Disposition: Code: Full code DVT prophylaxis: Per primary team Estimated LOS: LIkely DC tomorrow Friday 10/06 A total of 56 minutes was spent on chart review/reviewing diagnostic data/facilitating plan of care/discussion with consultants Admission and Anticipated Discharge Date Admission Date: October 03, 2024 Supervising Physician Co-Signing Physician Notes Patient is seen and examined at bedside. No bowel movement today. Visual symptoms much improved. +flatus. Denies any chest pain, dyspnea, nausea, vomiting. On exam patient is moderately built and nourished, no apparent distress, normocephalic atraumatic, EOMI, normal breath sounds, clear to auscultation, S1-S2, no murmur, no pedal edema, abdomen soft, normal bowel sounds, back: Surgical site in dressing, alert, awake, oriented, grossly no focal deficits. Patient is consulted for postop medical management. Patient had lumbar decompression, fusion surgery by Dr. Sotddard. Postoperative acute blood loss anemia. No indication for blood transfusion currently. Leukocytosis trending down. Pain control, wound care, activity as per primary team. Monitor TANGELA output, CBC. Saturating well on room air. Will obtain KUB if constipation persists. I personally interviewed and examined the patient at bedside. I have reviewed the advanced practitioner's documentation on the date of service referred in note and agree with plan. Patient's care is coordinated with Capri KUMAR. Please refer to the documentation above for details of patient's presentation and for discussion of other issues. I spent a total [id number] coordinating, documenting, and providing care for this patient excluding time spent in the performance of separately billed services or time spent by another provider/QHP. Subjective Pt lying in her hospital bed; in no apparent distress. She just finished breakfast. Patient denies HAYES, dizziness, chest pain, SOB, N/V/D. Tolerating meals well. Some drainage from TANGELA, it was just emptied. She has been up ambulating in the lobato. Blurry vision has resolved. (+) Flatulence, no BM yet, but feels like she can have one. Review of Systems Review of Systems: Neuro: (-) Falls, trauma, slurred speech HEENT: (-) HAYES, dizziness, dysphagia, (-) blurry vision CV: (-) CP, palpitations, swelling Resp: (-) SOB GI: (-) appetite changes, N/V/D, bowel changes : (-) urinary changes Skin: (-) rashes Psych: (-) anxiety, depression Physical Exam Physical Exam: Neuro: AAOx4, PERRLA, no aphagia, memory changes, CNII-XII grossly intact HEENT: head normocephalic, moist mucus membranes CV: S1/S2, (-) M/G/R, (-) edema, cap refill < 3 seconds TANGELA Drain x1. Resp: Lungs CTA in all jones. On RA GI: Abdomen S/NT/ND, Ax4 bowel sounds, (-) CVA tenderness Musculoskeletal: 5/5 B/L UE strength, 5/5 B/L LE strength. Uses a walker Skin: (-) rashes , (-) erythema. Psych: euthymic mood Results & Data Results & Data Vital Signs (Past 12 Hours) Vital Signs Temp Pulse Resp BP Pulse Ox O2 Del Method 10/05/24 07:08 37.0 C 75 16 128/72 95 Room Air 10/04/24 19:36 36.4 C L 81 18 149/77 H 95 Room Air Laboratory Results Short CBC 10/05/24 Range/Units 05:39 WBC 11.46 H (4.8-10.8) K/ul Hgb 9.3 L (12.0-16.0) g/dl Hct 29.1 L (37.0-47.0) % Plt Count 258 (130-400) K/uL BMP 10/05/24 05:39 Sodium 139 Potassium 3.8 Chloride 104 Carbon Dioxide 30 BUN 16 Creatinine 0.77 Glucose 97 Calcium 8.6
--- NOTE | 2024-10-05 07:33 | Orthopedic Progress Note ---
Date of Service October 05, 2024 Assessment & Plan (1) Other spondylosis with radiculopathy, lumbar region: Plan: Patient is doing well postoperative #2. Will continue with GI DVT prophylaxis and pain control measures. Will get her up and walking today with therapy. As long as she does well today we will likely be able to discharge her to home tomorrow. Admission and Anticipated Discharge Date Admission Date: October 03, 2024 Subjective Patient seen bedside in room 317. She is doing well today. She states she still has some back discomfort but nothing compared to how bad her legs felt prior to surgery. Her legs seem to be doing well. She has been up and walking. She is tolerating this well. She has not yet had a bowel movement. She denies any other numbness, tingling, or paresthesias. Physical Exam Physical Exam: On exam she is alert and oriented. She answers questions appropriately. Her lower extremity motor exam reveals no focal atrophy she is able move her extremities to gravity. Sensation is intact to light touch calves are supple nontender abdomen soft and nontender cardiovascular exam reveals no gross abnormalities. Results & Data Vital Signs (Past 12 Hours) Vital Signs Temp Pulse Resp BP Pulse Ox O2 Del Method 10/05/24 07:08 37.0 C 75 16 128/72 95 Room Air 10/04/24 19:36 36.4 C L 81 18 149/77 H 95 Room Air
[2024-10-05] MEDS: LOPERAMIDE HCL 2 MG CAP PO SCH (07:54)
--- NOTE | 2024-10-06 10:18 | Hospitalist Progress Note ---
Date of Service October 06, 2024 Assessment & Plan (1) Other spondylosis with radiculopathy, lumbar region: (2) Postoperative anemia due to acute blood loss: (3) Leukocytosis: (4) Hx of hyperlipidemia: (5) History of depression: (6) Hx of insomnia: Plan 74 year old female with PMH significant for hyperlipidemia, depression, anxiety, insomnia, IBS, GERD, and lumbar spondylosis with radiculopathy who is s/p L2-L4 decompression and fusion by Dr Stoddard on 10/03/2024. We have been consulted for post operative medical management. Lumbar spondylosis with radiculopathy POD#3 L2-L4 decompression and fusion surgery under the care of Dr. Stoddard Per ortho for pain control, wound care, anticoagulation, activities Encourage incentive spirometry PT cleared patient to return home Anticipate DC today Postop anemia due to acute blood loss Pre op Hgb 11.4 Post op Hgb 10.4 -> 9.5 -> 9.3 -> 10.8 Likely secondary to surgery with EBL 100mL and TANGELA output 630mL Stable, patient asymptomatic Leukocytosis Likely secondary to steroid use 14K -> 12K -> 11K -> 13K Stable, no s/s of infection Amblyopia, resolved Likely secondary to length of surgical procedure from positioning Ortho aware Resolved Postoperative hypoxia, resolved On 4L NC post op VBG pH 7.25, CO2 57, HCO3 25 Resolved On RA since 10/04/2024 Hyperlipidemia Continue statin Depression, anxiety, insomnia Continue bupropion, doxepin, eszopiclone, venlafaxine DVT Prophylaxis: TEDs in place per primary team Code Status: FULL CODE PCP: Emma Guzmán ([facility]) Disposition: anticipate dc today Patient seen in collaboration with Dr Galicia. Please see addendum. I spent a total of 50 minutes coordinating, documenting and providing care for this patient excluding time spent in the performance of separately billed services or time spent by another provider/QHP. Admission and Anticipated Discharge Date Admission Date: October 03, 2024 Supervising Physician Co-Signing Physician Notes Patient is seen and examined at bedside. States feeling a lot better today. Visual symptoms resolved. Had bowel movement. Back pain at surgical site is controlled. On exam patient is moderately built and nourished, no apparent distress, normocephalic atraumatic, EOMI, normal breath sounds, clear to auscultation, S1-S2, no murmur, no pedal edema, abdomen soft, normal bowel sounds, back: Surgical site in dressing, alert, awake, oriented, grossly no focal deficits. Patient is consulted for postop medical management. Patient had lumbar decompression, fusion surgery by Dr. Stoddard. Postoperative acute blood loss anemia. No indication for blood transfusion currently. Pain control, wound care, activity as per primary team. TANGELA drain management per primary team. Saturating well on room air. Constipation resolved. Continue bowel regimen. Advised to follow-up with primary care physician on discharge. I personally interviewed and examined the patient at bedside. I have reviewed the advanced practitioner's documentation on the date of service referred in note and agree with plan. Patient's care is coordinated with Gege KUMAR. Please refer to the documentation above for details of patient's presentation and for discussion of other issues. I spent a total [id number] coordinating, documenting, and providing care for this patient excluding time spent in the performance of separately billed services or time spent by another provider/QHP. Subjective Patient seen sitting up in bed Reports 2/10 pain in low back, denies left leg pain which is an improvement for her Denies headache, dizziness, blurry vision, chest pain, SOB, abdominal pain, N/V/D Had a bowel movement yesterday Cleared by PT for return home Review of Systems Review of Systems: All systems reviewed & are unremarkable except as noted in Subjective Physical Exam Physical Exam: General/Psych: WD/WN, sitting up in bed, NAD, conversing easily Head: normocephalic, atraumatic Eyes: normal inspection, PERRL, conjunctivae pink ENT: external ear and nose normal, oropharynx normal Neck: normal visual inspection, trachea midline Respiratory: normal respiratory effort, lungs clear to auscultation, no wheeze/rales/rhonchi, no accessory muscle use Cardiovascular: regular rate and rhythm, no murmur/rub/gallop, no JVD Extremities: no cyanosis or clubbing, normal peripheral pulses, no BLE edema Abdomen/GI: normal bowel sounds, soft, nontender, no hepatosplenomegaly Neurologic/MSK: A+Ox3, motor strength 5/5, moves all extremities, sensation intact BLE Skin: no rashes, normal color, warm and dry, island dsg c/d/i, TANGELA drain with small amount of serosanguinous output Results & Data Results & Data Vital Signs (Past 12 Hours) Vital Signs Temp Pulse Resp BP Pulse Ox O2 Del Method 10/06/24 07:17 36.5 C 73 16 139/64 96 Room Air Medications Administered Current Inpatient Medications Acetaminophen (Acetaminophen 500 Mg Tab) 1,000 mg PO Q8H PRN PRN Reason: MILD Pain (1,2,3) & Pre PT Stop: 11/02/24 14:31 Last Admin: 10/05/24 22:38 Dose: 1,000 mg Al Hydrox/Mg Hydrox/Simethicone (Aluminum/Magnesium Susp 30 Ml Udc) 30 ml PO Q6H PRN PRN Reason: Dyspepsia Stop: 11/02/24 14:31 Ascorbic Acid (Ascorbic Acid 500 Mg Tab) 500 mg PO DAILY HIWOT Stop: 11/03/24 08:59 Last Admin: 10/06/24 08:30 Dose: 500 mg Aspirin (Aspirin 81 Mg Ectab) 81 mg PO QAM HIWOT Stop: 11/03/24 08:59 Last Admin: 10/06/24 08:30 Dose: 81 mg Atorvastatin Calcium (Atorvastatin 10 Mg Tab) 10 mg PO HS [facility] Stop: 11/02/24 20:59 Last Admin: 10/05/24 20:47 Dose: 10 mg Bisacodyl (Bisacodyl 10 Mg Supp) 10 mg DC DAILY PRN PRN Reason: Constipation Stop: 11/02/24 14:31 Bupropion HCl (Bupropion Xl 300 Mg Tabcr) 300 mg PO QAM [facility] Stop: 11/03/24 08:59 Last Admin: 10/06/24 08:30 Dose: 300 mg Diphenhydramine HCl (Diphenhydramine Capsule 25 Mg Cap) 25 mg PO Q6H PRN PRN Reason: Allergic Rhinitis/Insomnia Stop: 11/02/24 14:31 Doxepin HCl (Doxepin Hcl 75 Mg Capsule) 75 mg PO HS [facility] Stop: 11/02/24 20:59 Last Admin: 10/05/24 20:47 Dose: 75 mg Eszopiclone (Eszopiclone 1 Mg Tab) 3 mg PO HS [facility] Stop: 11/02/24 20:59 Last Admin: 10/05/24 20:47 Dose: 3 mg Famotidine (Famotidine 20 Mg Tab) 20 mg PO Q12H PRN PRN Reason: Dyspepsia Stop: 11/02/24 14:31 Hydromorphone HCl (Hydromorphone Inj 0.5 Mg/0.5 Ml Syr) 0.5 mg IV Q3H PRN PRN Reason: MODERATE Pain(4,5,6)/Pre PT Stop: 10/17/24 14:31 Hydromorphone HCl (Hydromorphone Inj 1 Mg/Ml Syringe) 1 mg IV Q3H PRN PRN Reason: SEVERE Pain (7,8,9,10) Stop: 10/17/24 14:31 Hydroxyzine HCl (Hydroxyzine Hcl 25 Mg Tab) 25 mg PO Q8H PRN PRN Reason: Anxiety Stop: 11/02/24 14:31 Promethazine HCl (Phenergan) 12.5 mg in 50.5 mls @ 202 mls/hr IV Q6H PRN PRN Reason: Nausea And Vomiting Stop: 11/02/24 14:31 Influenza Virus Vaccine Quadrival (Do Not Administer Flu Vaccine) 1 each N/A PRN PRN PRN Reason: Notification Stop: 11/02/24 14:31 Loperamide HCl (Loperamide Hcl 2 Mg Cap) 1 mg PO Q2D HIWOT Stop: 11/04/24 08:59 Last Admin: 10/05/24 07:54 Dose: Not Given Lorazepam (Lorazepam 0.5 Mg Tab) 0.5 mg PO Q8H PRN PRN Reason: Sedation/Anxiety Stop: 11/02/24 14:31 Lorazepam (Lorazepam 2 Mg/1 Ml Vial) 0.5 mg IV Q8H PRN PRN Reason: Sedation/Anxiety Stop: 11/02/24 14:31 Magnesium Hydroxide (Magnesium Hydroxide Susp 30 Ml Udc) 30 ml PO Q24H PRN PRN Reason: Constipation Stop: 11/02/24 14:31 Melatonin (Melatonin 3 Mg Tab) 9 mg PO HS PRN PRN Reason: Sleep Stop: 11/04/24 00:00 Metoclopramide HCl (Metoclopramide Hcl Inj 5 Mg/Ml 2 Ml Vial) 10 mg IV Q6H PRN PRN Reason: Nausea &/or Vomiting Stop: 11/02/24 14:31 Multivitamins/Minerals (Cerovite Adv Formula Tab) 1 tab PO DAILY HIWOT Stop: 11/03/24 08:59 Last Admin: 10/06/24 08:30 Dose: 1 tab Naloxone HCl (Naloxone Hcl 0.4 Mg/1 Ml Vial/Carp) 0.1 mg IV Q5M PRN PRN Reason: Oversedation/Resp depression Stop: 11/02/24 14:31 Ondansetron HCl (Ondansetron Inj 2 Mg/Ml 2 Ml Vial) 4 mg IV Q6H PRN PRN Reason: Nausea &/or Vomiting Stop: 11/02/24 14:31 Last Admin: 10/03/24 19:08 Dose: 4 mg Ondansetron HCl (Ondansetron 4 Mg Od Tab) 4 mg PO Q6H PRN PRN Reason: Nausea Stop: 11/02/24 14:31 Oxycodone HCl (Oxycodone Hcl Ir 5 Mg Tab (Immediate Release)) 5 - 10 mg PO Q4H PRN PRN Reason: MOD/SEV Pain & Pre PT Stop: 10/17/24 14:31 Pneumococcal Polyvalent Vaccine (Do Not Administer Pneumococcal Vaccine) 1 each N/A PRN PRN PRN Reason: Notification Stop: 11/02/24 14:31 Polyethylene Glycol (Polyethylene (Miralax) 17 Gm Pack) 17 gm PO Q6 HIWOT Stop: 11/03/24 05:59 Last Admin: 10/06/24 06:18 Dose: Not Given Prazosin HCl (Prazosin Hcl 1 Mg Cap) 1 mg PO HS HIWOT Stop: 11/02/24 20:59 Last Admin: 10/05/24 20:47 Dose: 1 mg Senna/Docusate Sodium (Docusate Sodium/Senna 50/8.6mg Tab) 2 tab PO HS HIWOT Stop: 11/02/24 20:59 Last Admin: 10/05/24 20:47 Dose: 2 tab Sodium Biphosphate/Sodium Phosphate (Sod Phosphate/Sod Biphosphate Enema 132 Ml Btl) 132 ml DC ONE PRN PRN Reason: Constipation Stop: 11/02/24 14:31 Venlafaxine HCl (Venlafaxine Hcl Xr 150 Mg Capxr) 150 mg PO QAM HIWOT Stop: 11/03/24 08:59 Last Admin: 10/06/24 08:30 Dose: 150 mg Venlafaxine HCl (Venlafaxine Hcl Xr 75 Mg Capxr) 75 mg PO QAM HIWOT Stop: 11/03/24 08:59 Last Admin: 10/06/24 08:29 Dose: 75 mg Vitamin B Complex (Vitamin B Complex Tab) 1 tab PO DAILY HIWOT Stop: 11/03/24 08:59 Last Admin: 10/06/24 08:30 Dose: 1 tab Vitamin D (Cholecalciferol 25 Mcg (1000 Units) Tab) 50 mcg PO QAM HIWOT Stop: 11/03/24 08:59 Last Admin: 10/06/24 08:30 Dose: 50 mcg
[2024-10-06 10:40] LABS: Hematocrit (blood only) 33.3 % (37.0-47.0); Hemoglobin 10.8 g/dl (12.0-16.0); Mean Corpuscular Hemoglobin 29.8 pg (25.0-34.0); Mean Corpuscular Volume 91.7 fL (80.0-100.0); Platelet Count 313 K/uL (130-400); RDW Standard Deviation 49.7 fL (36.4-46.3); Red Blood Count 3.63 M/uL (4.20-5.40); White Blood Count 13.50 K/ul (4.8-10.8)
[2024-10-06 11:19] VITALS: BP 124/76; PULSE 74; RESP 15; TEMP 97.9; O2SAT 97
--- NOTE | 2024-10-06 13:13 | Discharge Summary ---
Date of Service October 06, 2024 Admission HPI Per Admitting Provider This is a 84-year-old female presents chronic persistent back and leg pain post with nonoperative care is here for surgical intervention. Principal Diagnosis Lumbar spondylosis with radiculopathy Discharge Data Allergies Allergy/AdvReac Type Severity Reaction Status Date / Time Sulfa (Sulfonamide Allergy Hives Verified 10/03/24 08:14 Antibiotics) tetracycline Allergy Unknown Verified 10/03/24 08:14 Consultations 10/03/24 14:32 Consult Hospitalist Routine Procedures Performed Operation Date: 10/03/24 09:05 Actual Procedures p L2-L4 Decompression and Fusion(Not Applicable) - Torres Stoddard DO Ordered Studies 10/03/24 09:05 FL lumbar spine 2-3V Routine Hospital Course (1) Other spondylosis with radiculopathy, lumbar region: Patient underwent multilevel lumbar decompression fusion tolerated this well was taken orthopedic for postoperative. Postop patient progressed appropriately. Marked improvement in her leg pain. Patient has excellent strength testing TANGELA drain decreasing appropriate. Pain well-controlled. Please subsequent discharge home. Discharge orders and instruction can be found in chart for further review. Total Time Total Time Spent Total Time Spent (In Minutes): 20 minutes Discharge Plan Discharge Items Patient Disposition: Home - Self-Care Reason For Visit: Single-Level Lumboacral Spondylosis with Radiculop Discharge Diagnosis: Lumbar spondylosis with radiculopathy Activity: As commented below Non-emergency contact: Primary Care Provider Call non-emergency contact if: you have any medication questions Follow-up/Referrals: PCP,NO [Physician] - Diet: Regular Addtl Attending Provider Instructions: ACTIVITY RECOMMENDATIONS: SELF CARE INSTRUCTIONS AFTER THORACIC/LUMBAR FUSIONS 1. You may walk to your tolerance. It is good exercise for your legs and back. Expect some back and intermittent leg aches and pains. 2. You may perform "counter-top" level activities (make a sandwich, prosper with a project, etc.). 3. No bending or lifting of more than 10 pounds or back twisting of any nature (roll like a log when turning in bed). 4. You may ride in a car for 20-30 minutes at a time. No driving until after your first visit with your doctor. 5. Frequent changes of position and restricting sitting to 30 minutes at a time will help limit the amount of back spasms and stiffness you may experience. 6. You may discontinue the use of ambulatory aids (cane, crutches, etc.) once your strength and confidence allow. 7. You may superintendent commissary the shower and let water strike your incision when you arrive home at least once daily. Do not take a tub bath, sit in a hot tub or go into a swimming pool until after your first recheck in the office. 8. You may resume previous diet. SPECIAL CARE INSTRUCTIONS: VERY IMPORTANT TO READ AND REVIEW A. Your surgical incision has been closed with a cosmetic suture under the skin that will dissolve in about 6 weeks. In 14 days, you can use a pair of clean scissors and cut the suture that is left outside of the skin at the ends of your incision. 1. The small skin tapes can be removed 7 days after surgery if they have not fallen off by that point. 2. You may keep the wound open to air as much as possible to promote healing after post-op day number 5 unless told otherwise by your doctor. 3. If you think the wound looks like it is becoming infected (redness or worsening drainage) and/or you are experiencing fever, chill or worsening back pain and muscle spasms, contact the office so that we may evaluate you as soon as possible. B. Complications are uncommon, but please contact us if you have any signs or symptoms of: 1. wound infection (fever higher than 102.5 degrees F, redness, separation of wound, drainage, or increasing pain from the incision) 2. blood clots in legs (pain, swelling, redness and warmth in legs) 3. urinary tract infection (fever higher than 102.5 degrees F, burning upon urination or increased frequency of urination) 4. nerve problems (inability to walk on your toes or heels, numbness, loss of bowel or bladder control) 5. any other symptoms that concern you C. Please call the office at if you have any concerns or questions about your operation or recovery. D. No smoking! Smoking drastically decreases the chance of a solid fusion. E. Do not take any anti-inflammatory medications (Indocin, Advil, Motrin, Aspirin, Naprosyn, etc.) as these may inhibit the chance of a solid fusion. Tylenol is okay to take for pain. MANAGING PAIN AFTER SPINAL SURGERY 1. Narcotic medication is intended for short-term use and will be provided for surgical pain. Surgical pain usually lasts for a period of 4-6 weeks. Narcotic medication includes Percocet, Vicodin, Darvocet, Tylenol #3 or Lortab. 2. Longer-term pain is more appropriately treated with non-narcotic medication such as Tylenol ES. 3. Muscle spasm is not appropriately treated with narcotics. Muscle relaxers such as Soma, Flexeril or Skelaxin can be used along with Tylenol ES. 4. Remember that we all live with some "aches and pains". This is not unusual or uncommon after an injury or as we get older. a. Back pain is expected and may include muscle spasms for 4 to 6 weeks after surgery. The pain should gradually improve. If the pain worsens for no apparent reason, please contact the office. b. Intermittent leg pain may also be experienced and should not be concerned about unless it worsens for no apparent reason. If so, please contact the office. 5. We will provide appropriate medication within the normal guidelines of their prescribed use. We will also be very cautious and aware of potential abuse and extended duration of patients' medication needs. a. Pain medications are for your comfort and to assist with sleep and rest so that the tissue can heal. They are not provided in order to return to normal activity and should not be used through the day. To do so or worsening pain at night can result from ongoing tissue damage and development of tolerance to the prescribed medicine. 6. Please allow 2-3 days to process refills. Prescriptions will not be mailed but must be picked up at the office. FOLLOW UP VISIT: Keep your scheduled follow-up appointment. Any questions, please call the office at . Pending Studies at Discharge: No Stand-Alone Forms: My [employer], Smoking Cessation Medications and DC Order Prescriptions: New tramadol 50 mg tablet 50 mg PO Q6H PRN (Reason: pain, moderate) Qty: 30 0RF oxycodone 5 mg tablet 5 mg PO Q6H PRN (Reason: pain) Qty: 30 0RF Continued venlafaxine 75 mg Tablet 75 mg PO QAM loperamide 2 mg Capsule 1 mg PO Q2D atorvastatin 10 mg Tablet 10 mg PO HS prazosin 1 mg Capsule 1 mg PO HS doxepin 75 mg Capsule 75 mg PO HS acetaminophen 650 mg Tablet Extended Release 650 mg PO HS B-complex with vitamin C Tablet 1 tab PO DAILY bupropion HCl [Wellbutrin XL] 300 mg Tablet Extended Release 24 Hr 300 mg PO QAM eszopiclone [Lunesta] 3 mg Tablet 3 mg PO HS cholecalciferol (vitamin D3) [Vitamin D3] 50 mcg (2,000 unit) Capsule 50 mcg PO QAM venlafaxine 150 mg Tablet Extended Release 24hr 150 mg PO QAM turmeric root extract 500 mg Capsule 500 mg PO QAM [id number] carb-vit K 18 mg iron-400 mcg-500 mg Tablet 1 tab PO DAILY aspirin 81 mg Capsule 81 mg PO QAM Discharge Orders: Discharge Order (Routine); Ordered 10/06/24 Ordered By: Torres Devries/Other Patient Handouts: Lumbar Fusion Dc Admission Data Admit Date/Time: 10/03/24 11:00 Attending Provider: Torres Stoddard Admit Provider: Torres Stoddard Primary Care Provider: Emma Guzmán Other Providers: Ebony James; Humza Galicia Other Interventions: Discharge Summary Assessment (RN) Last Done: 10/06/24 10:42
== END 2024-10-06 12:38 | disposition home or self-care (01) | DRG 427 ==
LOC: ASU 07:33 → 3E 11:00 → MERGE 11:35

== ENCOUNTER 2024-10-08 05:06 | Observation (INO) ==
--- NOTE | 2024-10-08 09:45 | History & Physical Report ---
Date of Service October 08, 2024 Assessment & Plan (1) Intractable low back pain: Plan: Machelle is postoperative day 5 status post L2-4 decompression and fusion with Dr. Stoddard who presents with intractable back and lower extremity pain. Will continue with bedrest today. Start steroids and narcotics for better pain control. DVT prophylaxis is in the form of teds and SCDs. Admission and Anticipated Discharge Date Admission Date: October 08, 2024 History of Present Illness Chief Complaint: Bilateral lower extremity pain Primary Care Provider: JOSÉ Aldrich This is a 74-year-old female well-known to us. On 10/03/2024 she underwent an L2-L4 decompression instrumented fusion by Dr. Stoddard. She was discharged home postoperative day 3 which was October 06, 2024. She is doing well. For the past 2 days she has been progressing at home but last evening started with an acute onset of severe lateral thigh pain bilaterally. No specific accident, trauma, fall. No position was comfortable. She went to her local emergency room where they subsequently transferred her here this morning to [facility]. She states she was taking oxycodone at home which was not controlling her pain. Denies any fevers or chills. No difficulty or issues with urinating. She has had a bowel movement since surgery. Denies abdominal pain. At home she has been ambulating with a walker. She has very little back pain. She states most of her pain is along the lateral thighs. Right leg is equal to the left leg. Does not radiate below the level of the knee Allergies Allergy/AdvReac Type Severity Reaction Status Date / Time Sulfa (Sulfonamide Allergy Hives Verified 10/03/24 08:14 Antibiotics) tetracycline Allergy Unknown Verified 10/03/24 08:14 Home Medications Medication Instructions Recorded Confirmed Type B-complex with vitamin C 1 tab PO DAILY 09/15/24 10/03/24 History acetaminophen 650 mg 650 mg PO HS 09/15/24 10/03/24 History tablet,extended release aspirin 81 mg capsule 81 mg PO QAM 09/15/24 10/03/24 History atorvastatin 10 mg tablet 10 mg PO HS 09/15/24 10/03/24 History bupropion HCl 300 mg 24 hr tablet, 300 mg PO QAM 09/15/24 10/03/24 History extended release (Wellbutrin XL) cholecalciferol (vitamin D3) 50 50 mcg PO QAM 09/15/24 10/03/24 History mcg (2,000 unit) capsule (Vitamin D3) doxepin 75 mg capsule 75 mg PO HS 09/15/24 10/03/24 History eszopiclone 3 mg tablet (Lunesta) 3 mg PO HS 09/15/24 10/03/24 History loperamide 2 mg capsule 1 mg PO Q2D 09/15/24 10/03/24 History [id number]-Ca carb-vit K 1 tab PO DAILY 09/15/24 10/03/24 History 18 mg iron-400 mcg-500 mg tablet prazosin 1 mg capsule 1 mg PO HS 09/15/24 10/03/24 History turmeric root extract 500 mg 500 mg PO QAM 09/15/24 10/03/24 History capsule venlafaxine 150 mg tablet,extended 150 mg PO QAM 09/15/24 10/03/24 History release 24 hr venlafaxine 75 mg tablet 75 mg PO QAM 09/15/24 10/03/24 History oxycodone 5 mg tablet 5 mg PO Q6H PRN pain #30 tabs 10/04/24 Rx tramadol 50 mg tablet 50 mg PO Q6H PRN pain, moderate 10/04/24 Rx #30 tabs Past Med/Surg History Problem List (Updated 10/08/24 @ 09:45 by Sis Dasilva PA-C) Intractable low back pain Leukocytosis Postoperative anemia due to acute blood loss Other spondylosis with radiculopathy, lumbar region Encounter for pre-operative examination Medical History Hx of gastroesophageal reflux (GERD) well controlled and stable Hx of migraines History of COVID-19 2019 or 2020, no residual symptoms History of asthma prn inh > not used since summer 2023 Mood swings hx History of depression Hx of irritable bowel syndrome Hx of hyperlipidemia Hx of insomnia Surgical History History of bilateral tubal ligation Hx of thumb surgery rt hand History of total right knee replacement Hx of right inguinal hernia repair Hx laparoscopic cholecystectomy History of Alexy fundoplication ~2019 History of esophagogastroduodenoscopy (EGD) Hx of colonoscopy Hx of bilateral cataract extraction Hx of tonsillectomy Social History Smoking Status: Never smoker Second Hand Exposure: No; Do You Dip or Chew Tobacco: No; Hx Alcohol Use: No Hx Substance Use: No Preferred Language: Setswana Communication Ability: Effective Engineer Sergeant Required: No Beliefs That Will Affect Care: None Current Living Situation: Spouse Other Information That Helps Us Care for You: No Feels Safe at Home: Yes Safety Concerns: Feels Safe At This Time Assistive Devices: Glasses Review of Systems Review of Systems: All systems reviewed & are unremarkable except as noted in HPI & below Physical Exam Physical Exam: She was seen in room 386 bed 2 She is very uncomfortable but cooperative with exam She can roll over independently Dressing is intact. It was removed. Incision looks great. No drainage. No ecchymosis. No significant edema. No purulence. No erythema She has weakness over bilateral quadriceps. Calf soft and nontender bilaterally She is nontender to palpation over the greater trochanter regions bilaterally. Constitutional: WD/WN, vitals as above Eyes: normal visual jones by confrontation ENMT: external ear and nose normal, oropharynx normal Neck: normal visual inspection Respiratory: normal respiratory effort Cardiovascular: Extremities: normal capillary refill Gastrointestinal (Abdomen): Inspection/Auscultation: abdomen normal to inspection Musculoskeletal: Spine: + limited thoraco-lumbar ROM Extremities: extremities normal to inspection Skin: no rashes, warm and dry Neurologic: normal touch/pain/proprioception and moves all extremities Psychiatric: A+Ox3, euthymic affect Eye Contact: good eye contact
[2024-10-08] MEDS ORDERED: ONDANSETRON 4 MG OD TAB PO PRN (09:48)
[2024-10-08] MEDS ORDERED: ACETAMINOPHEN 1,000 MG/100 ML VIAL IV PRN (09:48)
[2024-10-08] MEDS ORDERED: METOCLOPRAMIDE HCL INJ 5 MG/ML 2 ML VIAL IV PRN (09:48)
[2024-10-08] MEDS ORDERED: diphenhydrAMINE Capsule 25 MG CAP PO PRN (09:48)
[2024-10-08] MEDS ORDERED: ONDANSETRON INJ 2 MG/ML 2 ML VIAL IV PRN (09:48)
[2024-10-08] MEDS ORDERED: CYCLOBENZAPRINE HCL 10 MG TAB PO PRN (09:48)
[2024-10-08] MEDS ORDERED: NALOXONE HCL 0.4 MG/1 ML VIAL/CARP IV PRN (09:48)
[2024-10-08] MEDS ORDERED: MAGNESIUM HYDROXIDE SUSP 30 ML UDC PO PRN (09:48)
[2024-10-08] MEDS ORDERED: ACETAMINOPHEN 500 MG TAB PO PRN (09:48)
[2024-10-08] MEDS ORDERED: PROMETHAZINE 12.5 MG/50.5 ML BAG IV PRN (09:48)
[2024-10-08 10:18] LABS: Hematocrit (blood only) 33.0 % (37.0-47.0); Hemoglobin 10.6 g/dl (12.0-16.0); Immature Granulocytes # (auto) 0.06 K/uL (0.01-0.20); Immature Granulocytes % (auto) 0.4 %; Mean Corpuscular Hemoglobin 29.3 pg (25.0-34.0); Mean Corpuscular Volume 91.2 fL (80.0-100.0); Platelet Count 337 K/uL (130-400); RDW Standard Deviation 48.5 fL (36.4-46.3); Red Blood Count 3.62 M/uL (4.20-5.40); White Blood Count 13.97 K/ul (4.8-10.8)
[2024-10-08 10:35] LABS: Anion Gap 5.0 (3-11); Blood Urea Nitrogen 11.0 mg/dl (6-23); Calcium 8.3 mg/dl (8.6-10.3); Carbon Dioxide 27.0 mmol/L (21-32); Chloride 106.0 mmol/L (98-107); Creatinine Clr Calc Pharmacy 69.2 ml/min; Glucose 123.0 mg/dl (70-99(Fasting)); Potassium 3.8 mmol/L (3.5-5.1); Sodium 138.0 mmol/L (136-145)
[2024-10-08 10:51] LABS: Alanine Aminotransferase 843.0 U/L (7-52); Albumin Globulin Ratio 0.9 (0.9-2); Alkaline Phosphatase 211.0 U/L (34-104); Bilirubin,Total 0.7 mg/dl (0.2-1.0); Globulin 3.9 gm/dl (2.5-4.0); Total Protein 7.4 gm/dl (6.0-8.3)
[2024-10-08] MEDS: HYDROmorphone INJ 0.5 MG/0.5 ML SYR IV PRN (10:54)
[2024-10-08] MEDS: LACTATED RINGER'S 1,000 ML IV SCH (11:03)
[2024-10-08] MEDS: dexAMETHasone 8 MG in SYRINGE 0 ML IV SCH (11:10)
[2024-10-08] MEDS: LOPERAMIDE HCL 2 MG CAP PO SCH (11:10)
[2024-10-08] MEDS: KETOROLAC 30 MG/ML VIAL IV ONE (12:05)
--- NOTE | 2024-10-08 13:28 | Gastrointestinal Consultation ---
Date of Consultation October 08, 2024 Assessment & Plan (1) Elevated LFTs: -Obtain liver imaging; appears US is ordered and pending at present -Obtain INR, CK, Acute hepatitis panel, TSH, acetaminophen level, BHUPINDER, ASMA, & AMA; it appears primary team has ordered EBV, CMV, & GGT as well -Continue daily trends of LFTs -NAC protocol -Would be concerned about ischemia vs infectious process vs med induced. Further recommendations pending results Supervising Physician Co-Signing Physician Notes Patient seen and examined. Agree with LESLY Prince as above. Abd: Soft, NT, ND, +BS Continue current therapy and supportive care Complete NAC protocol Further recommendations to follow based on clinical course. History of Present Illness Reason for Consultation: Elevated LFTs Attending Physician: Torres Stodadrd DO History of Present Illness Patient is a 74 yo female who presents to the hospital due to worsening thigh pain since her recent L2-L4 decompression. She was discharged on 10/06/24. She returned due to the thigh pain. She was noted to have significant elevation of her LFTs which prompted a GI consult. AST 1534, ALT 843, Alk phos 211, T bili 0.7. She has Acetaminophen & Oxycodone on her home med list. A Tylenol level is pending as is a GGT. No liver imaging available at the time of the consult. INR pending. Patient is resting at the time of my evaluation and her family member provides the majority of the history. No significant alcohol use. She has been using NSAIDs, steroids, & Tylenol along with Oxycodone. He does not think she has reported abdominal pain, vomiting, heartburn, diarrhea, or other GI symptoms. No known family history of liver disease. No IVDA. Supplement use includes Turmeric. Allergies Allergy/AdvReac Type Severity Reaction Status Date / Time Sulfa (Sulfonamide Allergy Hives Verified 10/03/24 08:14 Antibiotics) tetracycline Allergy Unknown Verified 10/03/24 08:14 Home Medications Medication Instructions Recorded Confirmed Type B-complex with vitamin C 1 tab PO DAILY 09/15/24 10/08/24 History acetaminophen 650 mg 650 mg PO HS 09/15/24 10/08/24 History tablet,extended release aspirin 81 mg capsule 81 mg PO QAM 09/15/24 10/08/24 History atorvastatin 10 mg tablet 10 mg PO HS 09/15/24 10/08/24 History bupropion HCl 300 mg 24 hr tablet, 300 mg PO QAM 09/15/24 10/08/24 History extended release (Wellbutrin XL) cholecalciferol (vitamin D3) 50 50 mcg PO QAM 09/15/24 10/08/24 History mcg (2,000 unit) capsule (Vitamin D3) doxepin 75 mg capsule 75 mg PO HS 09/15/24 10/08/24 History eszopiclone 3 mg tablet (Lunesta) 3 mg PO HS 09/15/24 10/08/24 History loperamide 2 mg capsule 1 mg PO Q2D 09/15/24 10/08/24 History nfyjvzmx-qsz-nmlh-FA-Ca carb-vit K 1 tab PO DAILY 09/15/24 10/08/24 History 18 mg iron-400 mcg-500 mg tablet prazosin 1 mg capsule 1 mg PO HS 09/15/24 10/08/24 History turmeric root extract 500 mg 500 mg PO QAM 09/15/24 10/08/24 History capsule venlafaxine 150 mg tablet,extended 150 mg PO QAM 09/15/24 10/08/24 History release 24 hr venlafaxine 75 mg tablet 75 mg PO QAM 09/15/24 10/08/24 History oxycodone 5 mg tablet 5 mg PO Q6H PRN pain #30 tabs 10/04/24 10/08/24 Rx tramadol 50 mg tablet 50 mg PO Q6H PRN pain, moderate 10/04/24 10/08/24 Rx #30 tabs Patient History Medical History Hx of gastroesophageal reflux (GERD) well controlled and stable Hx of migraines History of COVID-19 2019 or 2020, no residual symptoms History of asthma prn inh > not used since summer 2023 Mood swings hx History of depression Hx of irritable bowel syndrome Hx of hyperlipidemia Hx of insomnia Surgical History History of bilateral tubal ligation Hx of thumb surgery rt hand History of total right knee replacement Hx of right inguinal hernia repair Hx laparoscopic cholecystectomy History of Alexy fundoplication ~2019 History of esophagogastroduodenoscopy (EGD) Hx of colonoscopy Hx of bilateral cataract extraction Hx of tonsillectomy Social History Smoking Status: Never smoker Second Hand Exposure: No; Do You Dip or Chew Tobacco: No; Hx Alcohol Use: No Hx Substance Use: No Preferred Language: [place] Communication Ability: Effective Company Secretary Required: No Beliefs That Will Affect Care: None Current Living Situation: Spouse Other Information That Helps Us Care for You: No Feels Safe at Home: Yes Safety Concerns: Feels Safe At This Time Assistive Devices: Glasses Review of Systems Constitutional: no fever and no chills Gastrointestinal: no abdominal pain Psychiatric: no problem reported Physical Exam Constitutional: well developed Respiratory: normal respiratory effort Cardiovascular: Rate/Rhythm: regular rate Psychiatric: Orientation: alert and oriented x 3 Results & Data Vital Signs (Past 12 Hours) Vital Signs Temp Pulse Resp BP Pulse Ox O2 Del Method O2 Flow Rate 10/08/24 10:57 91 H 19 156/66 H 97 Nasal Cannula 2 10/08/24 10:00 Nasal Cannula 3 10/08/24 09:10 36.4 C L 92 H 18 157/75 H 93 Nasal Cannula 3 PG Care Time/CCT Total # of Minutes Spent Total Time Spent with Patient: Total time spent is greater than 50% in coordination of care (as documented) at patient's floor/unit and/or counseling patient: Coding Level of Care Code 95503 INT INP/OBS CARE 3/75MIN Diagnoses Elevated LFTs R79.89
[2024-10-08 13:39] LABS: Thyroid Stimulating Hormone 12.166 uIu/ml (0.300-4.500)
--- NOTE | 2024-10-08 14:07 | Consultation ---
Date of Consultation October 08, 2024 Assessment & Plan (1) Intractable low back pain: (2) Other spondylosis with radiculopathy, lumbar region: (3) Postoperative anemia due to acute blood loss: Plan 74 year old female with PMH significant for hyperlipidemia, depression, anxiety, insomnia, IBS, GERD, and lumbar spondylosis with radiculopathy who is s/p L2-L4 decompression and fusion by Dr Stoddard on 10/03/2024. We have been consulted for elevated LFTS and medical management Lumbar spondylosis with radiculopathy with intractable post operative pain POD#5 L2-L4 decompression and fusion surgery under the care of Dr. Stoddard Per ortho for pain control, wound care, anticoagulation, activities Discontinue all APAP Elevated Transaminitis new onset elevation with ast 1534 u/L, ALT 843 U/L and ALP 211 U/L, tbili normal no excessive APAP per pt, no alcohol ingestion, no supplements obtain acute hep panel, ggt, tsh/t4, APAP level, cmv, ebv obtain RUQ Liver US, consult GI Postop anemia due to acute blood loss Pre op Hgb 11.4 Post op Hgb 10.4 -> 10.6 today and stable Likely secondary to surgery with EBL 100mL and TANGELA output 630mL Stable, patient asymptomatic Leukocytosis Likely secondary to steroid use hgb remains stable at 13.97, again no s/sx of infection but will monitor Hypoxia 2/2 narcotic administration pt currently requiring O2 have hydromorphone admin monitor closely, encourage ISP Hyperlipidemia hold statin in setting of elevated LFTS Depression, anxiety, insomnia Continue bupropion, doxepin, eszopiclone, venlafaxine DVT Prophylaxis: TEDs in place per primary team Code Status: FULL CODE PCP: Emma Guzámn ([facility]) Disposition: pt admitted to med surg for intractable back pain Patient seen in collaboration with Dr Galicia. Please see addendum. I spent a total of 45 minutes coordinating, documenting and providing care for this patient excluding time spent in the performance of separately billed services or time spent by another provider/QHP. Supervising Physician Co-Signing Physician Notes Patient is a 74-year-old female who recently underwent lumbar decompression surgery by Dr. Stoddard presents with increased back pain radiating down her legs. Please review HPI for complete details of presentation. On physical exam patient is moderately built and nourished, no apparent distress, normocephalic atraumatic, EOMI, normal breath sounds, clear to auscultation, S1-S2, no murmur, +1 edema, abdomen soft, nontender, normal bowel sounds, alert, awake, oriented, grossly no focal deficits. Patient is admitted for management of intractable lower back pain postoperatively and also transaminitis. Agree with checking acetaminophen, hepatitis panel, GGT and alcohol level. Appreciate GI input. Monitor for postop anemia. Bowel regimen to prevent constipation. Leukocytosis thought to be secondary to recent steroids. Monitor LFTs closely. Avoid hepatotoxic agents as able. I personally interviewed and examined the patient at bedside. I have reviewed the advanced practitioner's documentation on the date of service referred in note and agree with plan. Patient's care is coordinated with Shakira Sheppard PA-C. Please refer to the documentation above for details of patient's presentation and for discussion of other issues. I spent a total of 20 minutes coordinating, documenting, and providing care for this patient excluding time spent in the performance of separately billed services or time spent by another provider/QHP. History of Present Illness Requesting Physician: Sis Dasilva PA-C Reason for Consultation: Post op medical management Attending Physician: Torres Stoddard DO History of Present Illness The patient is a 74-year-old female with a past medical history of depression, HLD, scoliosis, arthritis, HPV who presented to hospital initially on 10/03/2024 s/p lumbar decompression and fusion L2-L4. She initially tolerated the procedure well and was discharged to home on 10/06. She was discharged on POD #3. Her hosp course was unremarkable. She did have ABL anemia and discharging hgb was 10.8. Her initial EBL was 100ml. Upon being discharged home she began having worsening pain pain and pain specifically down her b/l thighs and lateral legs to her knees. Pain became so severe she presented to ED in [place], [place]. She was subsequently transferred here this morning. At home she was taking narcotic w/o relief. at beside provides majority of hx due to pt tired state. He denies any alcohol use since discharge or excessive tylenol use. She has been u sing a walker at home. She has had no falls. The only thing that has helped her pain of late is valium. She has been very nauseated and had dry heaves but no vomiting. She denies abd pain. Denies f/c/s, chest pain, sob or cough. No sick contacts that she knows of. Allergies Allergy/AdvReac Type Severity Reaction Status Date / Time Sulfa (Sulfonamide Allergy Hives Verified 10/03/24 08:14 Antibiotics) tetracycline Allergy Unknown Verified 10/03/24 08:14 Home Medications Medication Instructions Recorded Confirmed Type B-complex with vitamin C 1 tab PO DAILY 09/15/24 10/08/24 History acetaminophen 650 mg 650 mg PO HS 09/15/24 10/08/24 History tablet,extended release aspirin 81 mg capsule 81 mg PO QAM 09/15/24 10/08/24 History atorvastatin 10 mg tablet 10 mg PO HS 09/15/24 10/08/24 History bupropion HCl 300 mg 24 hr tablet, 300 mg PO QAM 09/15/24 10/08/24 History extended release (Wellbutrin XL) cholecalciferol (vitamin D3) 50 50 mcg PO QAM 09/15/24 10/08/24 History mcg (2,000 unit) capsule (Vitamin D3) doxepin 75 mg capsule 75 mg PO HS 09/15/24 10/08/24 History eszopiclone 3 mg tablet (Lunesta) 3 mg PO HS 09/15/24 10/08/24 History loperamide 2 mg capsule 1 mg PO Q2D 09/15/24 10/08/24 History efvirsbl-zxs-rvok-FA-Ca carb-vit K 1 tab PO DAILY 09/15/24 10/08/24 History 18 mg iron-400 mcg-500 mg tablet prazosin 1 mg capsule 1 mg PO HS 09/15/24 10/08/24 History turmeric root extract 500 mg 500 mg PO QAM 09/15/24 10/08/24 History capsule venlafaxine 150 mg tablet,extended 150 mg PO QAM 09/15/24 10/08/24 History release 24 hr venlafaxine 75 mg tablet 75 mg PO QAM 09/15/24 10/08/24 History oxycodone 5 mg tablet 5 mg PO Q6H PRN pain #30 tabs 10/04/24 10/08/24 Rx tramadol 50 mg tablet 50 mg PO Q6H PRN pain, moderate 10/04/24 10/08/24 Rx #30 tabs Patient History Medical History Hx of gastroesophageal reflux (GERD) well controlled and stable Hx of migraines History of COVID-19 2019 or 2020, no residual symptoms History of asthma prn inh > not used since summer 2023 Mood swings hx History of depression Hx of irritable bowel syndrome Hx of hyperlipidemia Hx of insomnia Surgical History History of bilateral tubal ligation Hx of thumb surgery rt hand History of total right knee replacement Hx of right inguinal hernia repair Hx laparoscopic cholecystectomy History of Alexy fundoplication ~2019 History of esophagogastroduodenoscopy (EGD) Hx of colonoscopy Hx of bilateral cataract extraction Hx of tonsillectomy Social History Smoking Status: Never smoker Second Hand Exposure: No; Do You Dip or Chew Tobacco: No; Hx Alcohol Use: No Hx Substance Use: No Preferred Language: [place] Island[place] Communication Ability: Effective Family Service Center Director Required: No Beliefs That Will Affect Care: None Current Living Situation: Spouse Other Information That Helps Us Care for You: No Feels Safe at Home: Yes Safety Concerns: Feels Safe At This Time Assistive Devices: Glasses Review of Systems Review of Systems: All systems reviewed & are unremarkable except as noted in HPI & below Physical Exam Physical Exam: Gen: WD/WN, pt appears acutely ill, lying in bed, sleeping, NAD HEENT: Normocephalic, atraumatic, conjunctivae moist, sclerae anicteric, mucous membranes moist. Lung: Clear to Auscultation bilaterally, no wheezes/rales/rhonchi Heart: Regular rate, regular rhythm, no murmurs, rubs, or gallops Abdomen: Soft, NT, ND +BS x 4 Extremities: No edema Skin: Warm, no rash, negative turgor. Results & Data Vital Signs (Past 12 Hours) Vital Signs Temp Pulse Resp BP Pulse Ox O2 Del Method O2 Flow Rate 10/08/24 10:57 91 H 19 156/66 H 97 Nasal Cannula 2 10/08/24 10:00 Nasal Cannula 3 10/08/24 09:10 36.4 C L 92 H 18 157/75 H 93 Nasal Cannula 3 Laboratory Results I have independently reviewed and interpreted patient's admitting labs including CBC, CMP, tsh Medications Administered Current Inpatient Medications Aspirin (Aspirin 81 Mg Ectab) 81 mg PO QAM [facility] Stop: 11/08/24 08:59 Bisacodyl (Bisacodyl 10 Mg Supp) 10 mg MI DAILY PRN PRN Reason: Constipation Stop: 11/09/24 09:47 Bupropion HCl (Bupropion Xl 300 Mg Tabcr) 300 mg PO QAM [facility] Stop: 11/08/24 08:59 Cyclobenzaprine HCl (Cyclobenzaprine Hcl 10 Mg Tab) 10 mg PO Q8H PRN PRN Reason: Muscle Spasm Stop: 11/07/24 09:47 Diazepam (Diazepam 5 Mg Tablet) 5 mg PO BID PRN PRN Reason: Muscle Spasm Stop: 11/07/24 11:56 Last Admin: 10/08/24 12:06 Dose: 5 mg Diphenhydramine HCl (Diphenhydramine Capsule 25 Mg Cap) 25 mg PO Q6H PRN PRN Reason: Allergic Rhinitis/Insomnia Stop: 11/07/24 09:47 Doxepin HCl (Doxepin Hcl 75 Mg Capsule) 75 mg PO HS [facility] Stop: 11/07/24 20:59 Hydromorphone HCl (Hydromorphone Inj 0.5 Mg/0.5 Ml Syr) 0.5 mg IV Q3H PRN PRN Reason: MOD pain (scale 4-6) & Pre PT Stop: 10/22/24 09:47 Last Admin: 10/08/24 10:54 Dose: 0.5 mg Dexamethasone 8 mg/ Syringe 2 mls @ 1 mls/min IV Q8H [facility]WOT Stop: 10/09/24 02:01 Last Admin: 10/08/24 11:10 Dose: 1 mls/min Lactated Ringer's (Lr) 1,000 mls @ 75 mls/hr IV .[id number] [facility] Stop: 10/09/24 08:00 Last Admin: 10/08/24 11:03 Dose: 75 mls/hr Promethazine HCl (Phenergan) 12.5 mg in 50.5 mls @ 202 mls/hr IV Q6H PRN PRN Reason: Nausea And Vomiting Stop: 11/07/24 09:47 Loperamide HCl (Loperamide Hcl 2 Mg Cap) 1 mg PO Q2D [facility]WOT Stop: 11/07/24 10:05 Last Admin: 10/08/24 11:10 Dose: Not Given Lorazepam (Lorazepam 2 Mg/1 Ml Vial) 0.5 mg IV Q8H PRN PRN Reason: Sedation/Anxiety Stop: 11/07/24 09:47 Magnesium Hydroxide (Magnesium Hydroxide Susp 30 Ml Udc) 30 ml PO Q24H PRN PRN Reason: Constipation Stop: 11/07/24 09:47 Metoclopramide HCl (Metoclopramide Hcl Inj 5 Mg/Ml 2 Ml Vial) 10 mg IV Q6H PRN PRN Reason: Nausea &/or Vomiting Stop: 11/07/24 09:47 Miscellaneous (Eszopiclone [Lunesta] 3 Mg Tablet--Order Awaiting Action) 1 each N/A QS [facility]WOT Stop: 11/07/24 15:59 Naloxone HCl (Naloxone Hcl 0.4 Mg/1 Ml Vial/Carp) 0.1 mg IV Q5M PRN PRN Reason: Oversedation/respiratory dep Stop: 11/07/24 09:47 Ondansetron HCl (Ondansetron Inj 2 Mg/Ml 2 Ml Vial) 4 mg IV Q6H PRN PRN Reason: Nausea &/or Vomiting Stop: 11/07/24 09:47 Ondansetron HCl (Ondansetron 4 Mg Od Tab) 4 mg PO Q6H PRN PRN Reason: Nausea Stop: 11/07/24 09:47 Oxycodone HCl (Oxycodone Hcl Ir 5 Mg Tab (Immediate Release)) 5 - 10 mg PO Q4H PRN PRN Reason: mod to severe pain Stop: 10/22/24 09:47 Prazosin HCl (Prazosin Hcl 1 Mg Cap) 1 mg PO HS [facility] Stop: 11/07/24 20:59 Senna/Docusate Sodium (Docusate Sodium/Senna 50/8.6mg Tab) 2 tab PO HS [facility] Stop: 11/07/24 20:59 Tramadol HCl (Tramadol Hcl 50 Mg Tablet) 50 - 100 mg PO Q4H PRN PRN Reason: Moderate-Severe pain & Pre PT Stop: 11/07/24 09:47 Venlafaxine HCl (Venlafaxine Hcl Xr 75 Mg Capxr) 75 mg PO QAM [facility] Stop: 11/08/24 08:59 Venlafaxine HCl (Venlafaxine Hcl Xr 150 Mg Capxr) 150 mg PO QAM [facility] Stop: 11/08/24 08:59
[2024-10-08 14:24] LABS: EBV Nuclear Antigen IgG Ab Positive; EBV Nuclear Antigen IgG Quant 23.2 U/mL (< 18.0)
[2024-10-08 14:25] LABS: EBV IgM Quant < 10.0 U/mL (< 36.0)
[2024-10-08 14:26] LABS: EBV IgG Quant 215.0 U/mL (< 18.0)
[2024-10-08 14:54] LABS: INR 1.0 (0.9-1.1); Prothrombin Time 10.5 Seconds (9.0-12.0)
[2024-10-08] MEDS ORDERED: AcetylCYSTEINE IV 21 HR REGIMEN (21-40KG) IV STA (15:16)
[2024-10-08] MEDS ORDERED: STAT IV/IM STA (15:16)
[2024-10-08 15:22] LABS: EBV Early Antigen IgG Ab Equivocal (Negative); EBV Early Antigen IgG Quant 9.6 U/mL (< 9.0)
--- NOTE | 2024-10-08 15:59 | Ultrasound Report ---
ULTRASOUND RIGHT UPPER QUADRANT ABDOMEN CLINICAL HISTORY: Elevated hepatic transaminases. COMPARISON STUDY: Abdominal CT dated 10/08/2024 TECHNIQUE: Real-time, grayscale, and color flow sonography of the right upper quadrant of the abdomen was performed. Images are reviewed in the transverse and longitudinal planes. FINDINGS: Liver: The liver is normal in size and echotexture. There is mild intrahepatic biliary ductal dilatat ion, greatest within the left hepatic lobe. The main portal vein is patent. Gallbladder: The gallbladder is surgically absent. The common bile duct measures up to 0.5 cm in diam eter. Pancreas: Not visualized due to overlying bowel gas. Right kidney: Survey images of the right kidney demonstrate normal size and echotexture. There is no hydronephrosis. Ascites: None. IMPRESSION: 1. No acute sonographic abnormality is identified in the right upper quadrant noting status post chol ecystectomy. 2. Nonvisualization of the pancreas. ACT 112: Negative or not required by law. Electronically signed by: Adonay Anglin M.D. 10/08/2024 3:58 PM
[2024-10-08 16:32] LABS: Hep C Ab Rflx HepCQuant RNA Negative (Negative)
[2024-10-08 16:33] LABS: Hep B Surface Ag with confirm Negative (Negative)
[2024-10-08] MEDS: DOCUSATE SODIUM/SENNA 50/8.6MG TAB PO SCH (20:40)
[2024-10-08] MEDS: DOXEPIN HCL 75 MG CAPSULE PO SCH (20:40)
[2024-10-08] MEDS: PRAZOSIN HCL 1 MG CAP PO SCH (20:41)
[2024-10-08] MEDS ORDERED: ATORVASTATIN 10 MG TAB PO SCH (21:00)
[2024-10-09] MEDS: [UNRECOGNIZED DRUG - REMARK] SCH (00:27)
--- NOTE | 2024-10-09 08:34 | Orthopedic Progress Note ---
Date of Service October 09, 2024 Assessment & Plan (1) Intractable low back pain: Plan: Machelle is postoperative day 6 s/p decompression and fusion with abnormal LFTs. Pain in her lower extremities has resolved. Still undergoing a workup from GI. Ambulate ad cody. Continue with pain control. Currently orthopedically stable. Will discharge home once medically improved Admission and Anticipated Discharge Date Admission Date: October 08, 2024 Subjective Machelle is postoperative day 6 status post lumbar decompression and fusion. Leg pain that she presented with 48 hours ago has completely resolved. She has had abnormal liver enzymes therefore hospitalist has been consulted as well as the GI team. More lab work is ordered and ultrasound has been performed. She denies abdominal pain. She is passing flatus. She has been up and amatory around the room. Review of Systems Review of Systems: All systems reviewed & are unremarkable except as noted in HPI & below Physical Exam Physical Exam: She is alert and oriented x 3 She appears much more comfortable in bed today. Strength is intact bilateral lower extremities Abdomen soft Results & Data Vital Signs (Past 12 Hours) Vital Signs Temp Pulse Resp BP Pulse Ox O2 Del Method 10/09/24 07:11 37.0 C 65 16 146/66 H 94 Room Air Diagnostic Findings [place], [place] [phone] Ultrasound Report Patient: MACHELLE ARMENDARIZ Admit Date: 10/08/24 MR#: [id number] Address1: [address] [place] [address] Acct ID:[id number] Address2: Date: 1950 [facility] Zip: [place] [address] Age: 74 Location: 3N Sex: F Room/Bed: [facility] Att Phy: Torres Stoddard D.O. Diagnosis: INTRACTABLE BACK PAIN S/P MULTILEVEL LUMBAR DECOMP Karmen Phy: Emma Guzmán CRNP Service Date: 10/08/24 Fam Phy: Interpreting Ph[facility]: [facility] Phy: Torres Stoddard D.O. Ordering Phy: Sandy Reyes PA-C cc: ~ ULTRASOUND RIGHT UPPER QUADRANT ABDOMEN CLINICAL HISTORY: Elevated hepatic transaminases. COMPARISON STUDY: Abdominal CT dated 10/08/2024 TECHNIQUE: Real-time, grayscale, and color flow sonography of the right upper quadrant of the abdomen was performed. Images are reviewed in the transverse and longitudinal planes. FINDINGS: Liver: The liver is normal in size and echotexture. There is mild intrahepatic biliary ductal dilatation, greatest within the left hepatic lobe. The main portal vein is patent. Gallbladder: The gallbladder is surgically absent. The common bile duct measures up to 0.5 cm in diameter. Pancreas: Not visualized due to overlying bowel gas. Right kidney: Survey images of the right kidney demonstrate normal size and echotexture. There is no hydronephrosis. Ascites: None. IMPRESSION: 1. No acute sonographic abnormality is identified in the right upper quadrant noting status post cholecystectomy. 2. Nonvisualization of the pancreas. ACT 112: Negative or not required by law. Electronically signed by: Adonay Anglin M.D. 10/08/2024 3:58 PM Dictated: 10/08/24 1556 Transcribed: 10/08/24 1556
[2024-10-09] MEDS: ASPIRIN 81 MG ECTAB PO SCH (08:48)
[2024-10-09] MEDS: VENLAFAXINE HCL XR 150 MG CAPXR PO SCH (08:49)
[2024-10-09] MEDS: VENLAFAXINE HCL XR 75 MG CAPXR PO SCH (08:49)
[2024-10-09] MEDS ORDERED: NON-FORMULARY MEDICATION (Aspirin 81 mg Capsule) PO SCH (09:00)
--- NOTE | 2024-10-09 10:35 | Gastroenterology Progress Note ---
Date of Service October 09, 2024 Assessment & Plan (1) Elevated LFTs: Plan: -Patient continues on NAC protocol -Await LFTs from today -Typically LFT elevation to this degree is assistance representative of ischemic process vs infectious process vs medication induced vs less likely new onset of autoimmune liver disease; These studies are still pending and likely won't result during admission. -Will defer treatment of thyroid abnormalities to primary team Admission and Anticipated Discharge Date Admission Date: October 08, 2024 Supervising Physician Co-Signing Physician Notes Patient seen and examined and agree with LESLY Prince as above Feeling much better today. Abd: Soft, NT, ND, +BS Continue current therapy and supportive care. Subjective Patient is a 74 yo female with elevation of her LFTs. US was unremarkable. She notes improvement of leg pain. LFTs from today are pending. Acetaminophen level normal. No evidence for liver failure. Acute hepatitis A, B, C panel negative. She continues on NAC protocol. She has leukocytosis which primary team has attributed to corticosteroid use. Review of Systems Constitutional: no fever Gastrointestinal: no abdominal pain Physical Exam Gastrointestinal (Abdomen): Inspection/Auscultation: abdomen normal to inspection Results & Data Results & Data Vital Signs (Past 12 Hours) Vital Signs Temp Pulse Resp BP Pulse Ox O2 Del Method 10/09/24 07:11 37.0 C 65 16 146/66 H 94 Room Air PG Care Time/CCT Total # of Minutes Spent Total Time Spent with Patient: Total time spent is greater than 50% in coordination of care (as documented) at patient's floor/unit and/or counseling patient: Coding Level of Care Code 47882 SUB INP/OBS CARE 3/50MIN Diagnoses Elevated LFTs R79.89
[2024-10-09 10:49] LABS: Alanine Aminotransferase 481.0 U/L (7-52); Albumin Globulin Ratio 0.9 (0.9-2); Alkaline Phosphatase 165.0 U/L (34-104); Anion Gap 8.0 (3-11); Bilirubin,Total 0.3 mg/dl (0.2-1.0); Blood Urea Nitrogen 13.0 mg/dl (6-23); Calcium 8.8 mg/dl (8.6-10.3); Carbon Dioxide 24.0 mmol/L (21-32); Chloride 103.0 mmol/L (98-107); Creatinine Clr Calc Pharmacy 80.2 ml/min; Globulin 3.5 gm/dl (2.5-4.0); Glucose 133.0 mg/dl (70-99(Fasting)); Potassium 3.6 mmol/L (3.5-5.1); Sodium 135.0 mmol/L (136-145); Total Protein 6.5 gm/dl (6.0-8.3)
[2024-10-09] MEDS: POLYETHYLENE (MIRALAX) 17 GM PACK PO SCH (11:17)
--- NOTE | 2024-10-09 14:07 | Hospitalist Progress Note ---
Date of Service October 09, 2024 Assessment & Plan (1) Intractable low back pain: (2) Other spondylosis with radiculopathy, lumbar region: (3) Postoperative anemia due to acute blood loss: Plan 74 year old female with PMH significant for hyperlipidemia, depression, anxiety, insomnia, IBS, GERD, and lumbar spondylosis with radiculopathy who is s/p L2-L4 decompression and fusion by Dr Stoddard on 10/03/2024. We have been consulted for elevated LFTS and medical management Lumbar spondylosis with radiculopathy with intractable post operative pain POD#5 L2-L4 decompression and fusion surgery under the care of Dr. Stoddard Per ortho for pain control, wound care, anticoagulation, activities Discontinue all APAP Appreciate orthospine input and recommendation Seems to be stable without significant pain and radiculopathy Elevated Transaminitis-no excessive Tylenol use, no new medications and no hypotension. So far Wesley-Grant virus serology is positive so could be the cause for abnormal LFTs new onset elevation with ast 1534 u/L, ALT 843 U/L and ALP 211 U/L, tbili normal no excessive APAP per pt, no alcohol ingestion, no supplements obtain acute hep panel, ggt, tsh/t4, APAP level, cmv, ebv Hepatitis panel has been negative so far and Tylenol level is normal Other viral virus serology shows EBV capsid antigen elevated to 215 IgM antibodies negative, monoscreen is negative hepatitis A BS B and C antibodies are pending Appreciate GI input and recommendation to give N-acetylcysteine Ultrasound of the liver was negative for any stone and/or gallbladder disease Liver function has improved a lot and will monitor Postop anemia due to acute blood loss Pre op Hgb 11.4 Post op Hgb 10.4 -> 10.6 today and stable Likely secondary to surgery with EBL 100mL and TANGELA output 630mL Stable, patient asymptomatic Leukocytosis Likely secondary to steroid use hgb remains stable at 13.97, again no s/sx of infection but will monitor Hypoxia 2/2 narcotic administration pt currently requiring O2 have hydromorphone admin monitor closely, encourage ISP Hyperlipidemia hold statin in setting of elevated LFTS Depression, anxiety, insomnia Continue bupropion, doxepin, eszopiclone, venlafaxine DVT Prophylaxis: TEDs in place per primary team Code Status: FULL CODE PCP: Emma Guzmán ([facility]) Disposition: pt admitted to med surg for intractable back pain NAD Admission and Anticipated Discharge Date Admission Date: October 08, 2024 Subjective 10/09/2024 The patient was seen and examined in the ED medical floor She is a status post L2-L4 decompression and fusion and was discharged home on 14 of this month Came back with increasing neck pain with radiation and noted to have very high LFTs Denies taking of any Tylenol and no other new medications She has been feeling much better and denies any significant symptoms Review of Systems Review of Systems: All systems reviewed and are unremarkable except as noted below Physical Exam Physical Exam: Lying in bed without any acute distress Constitutional: well developed, well nourished, + ill appearing and average body habitus Eyes: PERRL, conjunctivae normal, anicteric sclerae ENMT: external ear and nose normal, oropharynx normal Neck: trachea midline, no thyromegaly Respiratory: no respiratory distress Auscultation: lungs clear to auscultation bilaterally Cardiovascular: Rate/Rhythm: regular rate and regular rhythm; not tachycardic Heart Sounds: normal S1 and normal S2; no murmur Extremities: no edema Gastrointestinal (Abdomen): Inspection/Auscultation: normal bowel sounds; abdomen not distended Percussion/Palpation: abdomen soft; abdomen nontender Musculoskeletal: No acute arthritis involving any of the joints except some low back pain Neurologic: plantar reflexes intact bilaterally and moves all extremities; not confused Psychiatric: A+Ox3, euthymic affect Lymphatic: no cervical or axillary lymphadenopathy Results & Data Results & Data Vital Signs (Past 12 Hours) Vital Signs Temp Pulse Resp BP Pulse Ox O2 Del Method 10/09/24 07:11 37.0 C 65 16 146/66 H 94 Room Air Laboratory Results [facility] 10/09/24 10:12 Sodium 135 L Potassium 3.6 Chloride 103 Carbon Dioxide 24 BUN 13 Creatinine 0.69 Glucose 133 H Calcium 8.8 Cardiac Enzymes 10/08/24 Range/Units 14:53 Total Creatine Kinase 77 (26-192) U/L Liver Function 10/09/24 Range/Units 10:12 Total Bilirubin 0.3 (0.2-1.0) mg/dl AST 299 H (13-39) U/L ALT 481 H (7-52) U/L Alkaline Phosphatase 165 H (34-104) U/L Albumin 3.0 L (3.4-5.0) gm/dl Scheduled 9 Medications Administered Current Inpatient Medications Aspirin (Aspirin 81 Mg Ectab) 81 mg PO QAM [facility] Stop: 11/08/24 08:59 Last Admin: 10/09/24 08:48 Dose: 81 mg Bisacodyl (Bisacodyl 10 Mg Supp) 10 mg TX DAILY PRN PRN Reason: Constipation Stop: 11/09/24 09:47 Bupropion HCl (Bupropion Xl 300 Mg Tabcr) 300 mg PO QAM [facility] Stop: 11/08/24 08:59 Last Admin: 10/09/24 08:49 Dose: 300 mg Cyclobenzaprine HCl (Cyclobenzaprine Hcl 10 Mg Tab) 10 mg PO Q8H PRN PRN Reason: Muscle Spasm Stop: 11/07/24 09:47 Diazepam (Diazepam 5 Mg Tablet) 5 mg PO BID PRN PRN Reason: Muscle Spasm Stop: 11/07/24 11:56 Last Admin: 10/08/24 12:06 Dose: 5 mg Diphenhydramine HCl (Diphenhydramine Capsule 25 Mg Cap) 25 mg PO Q6H PRN PRN Reason: Allergic Rhinitis/Insomnia Stop: 11/07/24 09:47 Doxepin HCl (Doxepin Hcl 75 Mg Capsule) 75 mg PO HS [facility] Stop: 11/07/24 20:59 Last Admin: 10/08/24 20:40 Dose: 75 mg Hydromorphone HCl (Hydromorphone Inj 0.5 Mg/0.5 Ml Syr) 0.5 mg IV Q3H PRN PRN Reason: MOD pain (scale 4-6) & Pre PT Stop: 10/22/24 09:47 Last Admin: 10/08/24 10:54 Dose: 0.5 mg Promethazine HCl (Phenergan) 12.5 mg in 50.5 mls @ 202 mls/hr IV Q6H PRN PRN Reason: Nausea And Vomiting Stop: 11/07/24 09:47 Loperamide HCl (Loperamide Hcl 2 Mg Cap) 1 mg PO Q2D [facility] Stop: 11/07/24 10:05 Last Admin: 10/08/24 11:10 Dose: Not Given Lorazepam (Lorazepam 2 Mg/1 Ml Vial) 0.5 mg IV Q8H PRN PRN Reason: Sedation/Anxiety Stop: 11/07/24 09:47 Magnesium Hydroxide (Magnesium Hydroxide Susp 30 Ml Udc) 30 ml PO Q24H PRN PRN Reason: Constipation Stop: 11/07/24 09:47 Metoclopramide HCl (Metoclopramide Hcl Inj 5 Mg/Ml 2 Ml Vial) 10 mg IV Q6H PRN PRN Reason: Nausea &/or Vomiting Stop: 11/07/24 09:47 Miscellaneous (Eszopiclone [Lunesta] 3 Mg Tablet--Order Awaiting Action) 1 each N/A QS [facility] Stop: 11/07/24 15:59 Last Admin: 10/09/24 08:48 Dose: Not Given Naloxone HCl (Naloxone Hcl 0.4 Mg/1 Ml Vial/Carp) 0.1 mg IV Q5M PRN PRN Reason: Oversedation/respiratory dep Stop: 11/07/24 09:47 Ondansetron HCl (Ondansetron Inj 2 Mg/Ml 2 Ml Vial) 4 mg IV Q6H PRN PRN Reason: Nausea &/or Vomiting Stop: 11/07/24 09:47 Ondansetron HCl (Ondansetron 4 Mg Od Tab) 4 mg PO Q6H PRN PRN Reason: Nausea Stop: 11/07/24 09:47 Oxycodone HCl (Oxycodone Hcl Ir 5 Mg Tab (Immediate Release)) 5 - 10 mg PO Q4H PRN PRN Reason: mod to severe pain Stop: 10/22/24 09:47 Last Admin: 10/08/24 22:36 Dose: 5 mg Polyethylene Glycol (Polyethylene (Miralax) 17 Gm Pack) 17 gm PO DAILY [facility] Stop: 11/08/24 10:44 Last Admin: 10/09/24 11:17 Dose: 17 gm Prazosin HCl (Prazosin Hcl 1 Mg Cap) 1 mg PO HS [facility] Stop: 11/07/24 20:59 Last Admin: 10/08/24 20:41 Dose: 1 mg Senna/Docusate Sodium (Docusate Sodium/Senna 50/8.6mg Tab) 2 tab PO HS [facility] Stop: 11/07/24 20:59 Last Admin: 10/08/24 20:40 Dose: 2 tab Tramadol HCl (Tramadol Hcl 50 Mg Tablet) 50 - 100 mg PO Q4H PRN PRN Reason: Moderate-Severe pain & Pre PT Stop: 11/07/24 09:47 Venlafaxine HCl (Venlafaxine Hcl Xr 75 Mg Capxr) 75 mg PO QAM [facility] Stop: 11/08/24 08:59 Last Admin: 10/09/24 08:49 Dose: 75 mg Venlafaxine HCl (Venlafaxine Hcl Xr 150 Mg Capxr) 150 mg PO QAM [facility] Stop: 11/08/24 08:59 Last Admin: 10/09/24 08:49 Dose: 150 mg 9
--- NOTE | 2024-10-10 08:04 | Hospitalist Progress Note ---
Date of Service October 10, 2024 Assessment & Plan (1) Intractable low back pain: (2) Other spondylosis with radiculopathy, lumbar region: (3) Postoperative anemia due to acute blood loss: (4) Hypokalemia: Plan 74 year old female with PMH significant for hyperlipidemia, depression, anxiety, insomnia, IBS, GERD, and lumbar spondylosis with radiculopathy who is s/p L2-L4 decompression and fusion by Dr Stoddard on 10/03/2024. We have been consulted for elevated LFTS and medical management Lumbar spondylosis with radiculopathy with intractable post operative pain POD#6 L2-L4 decompression and fusion surgery under the care of Dr. Stoddard Per ortho for pain control, wound care, anticoagulation, activities Discontinue all APAP Appreciate orthospine input and recs Seems to be stable without significant pain and radiculopathy Elevated Transaminitis Suspect ISO of Wesley-Grant virus serology is positive so could be the cause for abnormal LFTs new onset elevation LFT: -AST 1534--> 299--> 104 -ALT 843 --> 481--> 296 -ALP 211--> 165-->130 no excessive APAP per pt, no alcohol ingestion, no supplements Hepatitis panel negative. Tylenol level normal. Other viral virus serology shows EBV capsid antigen elevated to 215 IgM antibodies negative liver US negative Postop anemia due to acute blood loss Pre op Hgb 11.4 Post op Hgb 10.4 -> 9.1 Likely ISO surgery with EBL 100mL and TANGELA output 630mL Stable, patient asymptomatic Add on anemia panel Hypokalemia: serum K+ 3.4; ordered KCL 40mEq PO once check BMP in AM Leukocytosis Likely secondary to steroid use hgb remains stable at 13.97, again no s/sx of infection but will monitor Hypoxia 2/2 narcotic administration pt currently requiring O2 have hydromorphone admin monitor closely, encourage ISP Hyperlipidemia hold statin in setting of elevated LFTS Depression, anxiety, insomnia Continue bupropion, doxepin, eszopiclone, venlafaxine Disposition: DVT Prophylaxis: TEDs in place per primary team Code Status: FULL CODE PCP: Emma Guzmán ([facility]) Likely DC on Sat 10/11 I spent a total of 54 minutes coordinating, documenting, and providing care for this patient excluding time spent inthe performance of separately billed services or time spent by another provider/QHP. Admission and Anticipated Discharge Date Admission Date: October 08, 2024 Supervising Physician Co-Signing Physician Notes 10/10/2024 The patient was seen and examined in medical floor She has been feeling better but still has some pain at the back and not yet ready to be discharged Denies any abdominal symptoms and her LFTs are much improved On examination Sitting at the edge of the bed without any acute distress Remains hemodynamically stable and unremarkable physical examination Her labs and imaging studies reviewed Her back pain and radiculopathy is stable and has significant improvement of liver function test Agree with assessment and plan as outlined above by Capri KUMAR and take the full responsibility of care in the hospital DR Hazel Arteaga Subjective Pt sitting in her hospital bed in no apparent distress. Pt pain is much more controlled. Pt denies HAYES, dizziness, SOB, chest pain, N/V/D. Pt does continue to c/o neuropathic pain around her hips. Transaminitis improving significantly. See A/P for further details . Review of Systems Review of Systems: Neuro: (-) Falls, trauma, slurred speech HEENT: (-) HAYES, dizziness, dysphagia, visual or auditory changes CV: (-) CP, palpitations, swelling Resp: (-) SOB GI: (-) appetite changes, N/V/D, bowel changes : (-) urinary changes Skin: (-) rashes Psych: (-) anxiety, depression Physical Exam Physical Exam: Neuro: AAOx4, PERRLA, no aphagia, memory changes, CNII-XII grossly intact HEENT: head normocephalic, moist mucus membranes CV: S1/S2, (-) M/G/R, (-) edema, cap refill < 3 seconds Resp: Lungs CTA in all jones. On RA GI: Abdomen S/NT/ND, Ax4 bowel sounds, (-) CVA tenderness Musculoskeletal: 5/5 B/L UE strength, 5/5 B/L LE strength. No gait disturbance Skin: (-) rashes , (-) erythema. Psych: euthymic mood Results & Data Results & Data Vital Signs (Past 12 Hours) Vital Signs Temp Pulse Resp BP Pulse Ox O2 Del Method 10/10/24 07:45 36.7 C 79 19 150/74 H 96 Room Air Laboratory Results Short CBC 10/10/24 Range/Units 07:32 WBC 10.45 (4.8-10.8) K/ul Hgb 9.1 L (12.0-16.0) g/dl Hct 26.9 L (37.0-47.0) % Plt Count 326 (130-400) K/uL BMP 10/10/24 07:32 Sodium 137 Potassium 3.4 L Chloride 105 Carbon Dioxide 26 BUN 13 Creatinine 0.74 Glucose 83 Calcium 8.5 L Liver Function 10/10/24 Range/Units 07:32 Total Bilirubin 0.4 (0.2-1.0) mg/dl AST 104 H (13-39) U/L ALT 296 H (7-52) U/L Alkaline Phosphatase 130 H (34-104) U/L Albumin 3.3 L (3.4-5.0) gm/dl
[2024-10-10 09:01] LABS: Alanine Aminotransferase 296.0 U/L (7-52); Albumin Globulin Ratio 1.0 (0.9-2); Alkaline Phosphatase 130.0 U/L (34-104); Anion Gap 6.0 (3-11); Bilirubin,Total 0.4 mg/dl (0.2-1.0); Blood Urea Nitrogen 13.0 mg/dl (6-23); Calcium 8.5 mg/dl (8.6-10.3); Carbon Dioxide 26.0 mmol/L (21-32); Chloride 105.0 mmol/L (98-107); Creatinine Clr Calc Pharmacy 74.8 ml/min; Globulin 3.2 gm/dl (2.5-4.0); Glucose 83.0 mg/dl (70-99(Fasting)); Potassium 3.4 mmol/L (3.5-5.1); Sodium 137.0 mmol/L (136-145); Total Protein 6.5 gm/dl (6.0-8.3)
[2024-10-10 09:15] LABS: Hematocrit (blood only) 26.9 % (37.0-47.0); Hemoglobin 9.1 g/dl (12.0-16.0); Immature Granulocytes # (auto) 0.04 K/uL (0.01-0.20); Immature Granulocytes % (auto) 0.4 %; Mean Corpuscular Hemoglobin 29.2 pg (25.0-34.0); Mean Corpuscular Volume 86.2 fL (80.0-100.0); Platelet Count 326 K/uL (130-400); RDW Standard Deviation 44.1 fL (36.4-46.3); Red Blood Count 3.12 M/uL (4.20-5.40); White Blood Count 10.45 K/ul (4.8-10.8)
--- NOTE | 2024-10-10 09:25 | Gastroenterology Progress Note ---
Date of Service October 10, 2024 Assessment & Plan (1) Elevated LFTs: Plan: LFTs continue to trend downwards. Will relay remainder of liver work-up results to patient in the outpatient setting when the labs return. Admission and Anticipated Discharge Date Admission Date: October 08, 2024 Subjective Patient is a 74 yo female GI is following for elevated LFTs. Patient's LFTs continue to downtrend today. No new alarming GI findings. Review of Systems Gastrointestinal: no abdominal pain Physical Exam Constitutional: well developed Respiratory: normal respiratory effort Gastrointestinal (Abdomen): Inspection/Auscultation: abdomen normal to inspection Psychiatric: Orientation: alert and oriented x 3 Results & Data Results & Data Vital Signs (Past 12 Hours) Vital Signs Temp Pulse Resp BP Pulse Ox O2 Del Method 10/10/24 07:45 36.7 C 79 19 150/74 H 96 Room Air PG Care Time/CCT Total # of Minutes Spent Total Time Spent with Patient: Total time spent is greater than 50% in coordination of care (as documented) at patient's floor/unit and/or counseling patient: Coding Level of Care Code 04721 SUB INP/OBS CARE 2/35MIN Diagnoses Elevated LFTs R79.89
[2024-10-10 09:57] LABS: Iron 56.0 mcg/dl (35-150); Transferrin 191.0 mg/dl (200-360)
[2024-10-10] MEDS: POTASSIUM CHLORIDE CRTAB 20 MEQ TABCR PO STA (10:10)
[2024-10-10 10:17] LABS: Ferritin 77.1 ng/ml (8-388)
[2024-10-10 10:21] LABS: Folate (Folic Acid),Ser orPlas > 22.30 ng/ml (>5.38); Vitamin B12 585 pg/ml (180-914)
--- NOTE | 2024-10-10 10:29 | Orthopedic Progress Note ---
Date of Service October 10, 2024 Assessment & Plan (1) Other spondylosis with radiculopathy, lumbar region: Plan: At this time she can continue with ambulation and therapy. She is safe for discharge per orthopedics. Will await medical clearance. Admission and Anticipated Discharge Date Admission Date: October 08, 2024 Subjective Patient's pain is much more controlled. She is tolerating physical therapy. Physical Exam Physical Exam: On exam she still has some tenderness palpation the bilateral trochanteric and IT band regions. But neurologically intact. Results & Data Vital Signs (Past 12 Hours) Vital Signs Temp Pulse Resp BP Pulse Ox O2 Del Method 10/10/24 07:45 36.7 C 79 19 150/74 H 96 Room Air
[2024-10-10 13:48] LABS: Gamma Glutamyl Transpeptidase 203 U/L (3-65)
[2024-10-10 19:24] VITALS: RESP 18
[2024-10-10] MEDS: ESZOPICLONE 1 MG TAB PO SCH (20:13)
[2024-10-10] MEDS: CALCIUM CARBONATE 500 MG CHEWABLE TAB PO PRN (20:24)
[2024-10-11 07:37] LABS: Hematocrit (blood only) 27.8 % (37.0-47.0); Hemoglobin 9.3 g/dl (12.0-16.0); Mean Corpuscular Hemoglobin 29.6 pg (25.0-34.0); Mean Corpuscular Volume 88.5 fL (80.0-100.0); Platelet Count 306 K/uL (130-400); RDW Standard Deviation 45.9 fL (36.4-46.3); Red Blood Count 3.14 M/uL (4.20-5.40); White Blood Count 10.04 K/ul (4.8-10.8)
[2024-10-11 07:42] VITALS: BP 117/71; TEMP 98.2; O2SAT 94
[2024-10-11 08:07] LABS: Alanine Aminotransferase 181.0 U/L (7-52); Albumin Globulin Ratio 1.0 (0.9-2); Alkaline Phosphatase 107.0 U/L (34-104); Anion Gap 4.0 (3-11); Bilirubin,Total 0.3 mg/dl (0.2-1.0); Blood Urea Nitrogen 12.0 mg/dl (6-23); Calcium 8.3 mg/dl (8.6-10.3); Carbon Dioxide 28.0 mmol/L (21-32); Chloride 105.0 mmol/L (98-107); Creatinine Clr Calc Pharmacy 74.8 ml/min; Globulin 2.9 gm/dl (2.5-4.0); Glucose 89.0 mg/dl (70-99(Fasting)); Potassium 3.9 mmol/L (3.5-5.1); Sodium 137.0 mmol/L (136-145); Total Protein 5.9 gm/dl (6.0-8.3)
--- NOTE | 2024-10-11 08:08 | Discharge Summary ---
Date of Service October 11, 2024 Admission HPI Per Admitting Provider This is a 74-year-old female well-known to us. On 10/03/2024 she underwent an L2-L4 decompression instrumented fusion by Dr. Stoddard. She was discharged home postoperative day 3 which was October 06, 2024. She is doing well. For the past 2 days she has been progressing at home but last evening started with an acute onset of severe lateral thigh pain bilaterally. No specific accident, trauma, fall. No position was comfortable. She went to her local emergency room where they subsequently transferred her here this morning to [facility]. She states she was taking oxycodone at home which was not controlling her pain. Denies any fevers or chills. No difficulty or issues with urinating. She has had a bowel movement since surgery. Denies abdominal pain. At home she has been ambulating with a walker. She has very little back pain. She states most of her pain is along the lateral thighs. Right leg is equal to the left leg. Does not radiate below the level of the knee Principal Diagnosis Status post lumbar decompression and fusion Discharge Data Allergies Allergy/AdvReac Type Severity Reaction Status Date / Time Sulfa (Sulfonamide Allergy Hives Verified 10/03/24 08:14 Antibiotics) tetracycline Allergy Unknown Verified 10/03/24 08:14 Consultations 10/08/24 12:05 Consult Hospitalist Routine 10/08/24 12:53 Consult Gastroenterology Routine Ordered Studies 10/08/24 12:57 liver Stat Hospital Course (1) Intractable low back pain: Patient was admitted postoperatively with back and leg pain. She also had an acute episode of hepatitis of unknown etiology. She progressed appropriately throughout her stay. Tolerating fair therapy. Pain much improved. Extra s trength testing. Subsidy discharged home. Discharge orders instructions from the chart for further review. Total Time Total Time Spent Total Time Spent (In Minutes): 20 minutes Discharge Plan Discharge Items Patient Disposition: Home - Self-Care Reason For Visit: INTRACTABLE BACK PAIN S/P MULTILEVEL LUMBAR DECOMP Discharge Diagnosis: Status post lumbar decompression and fusion Activity: As commented below Non-emergency contact: Primary Care Provider Call non-emergency contact if: you have any medication questions Follow-up/Referrals: Emma Guzmán CRNP [Primary Care Provider] - Diet: Regular Addtl Attending Provider Instructions: ACTIVITY RECOMMENDATIONS: SELF CARE INSTRUCTIONS AFTER THORACIC/LUMBAR FUSIONS 1. You may walk to your tolerance. It is good exercise for your legs and back. Expect some back and intermittent leg aches and pains. 2. You may perform "counter-top" level activities (make a sandwich, prosper with a project, etc.). 3. No bending or lifting of more than 10 pounds or back twisting of any nature (roll like a log when turning in bed). 4. You may ride in a car for 20-30 minutes at a time. No driving until after your first visit with your doctor. 5. Frequent changes of position and restricting sitting to 30 minutes at a time will help limit the amount of back spasms and stiffness you may experience. 6. You may discontinue the use of ambulatory aids (cane, crutches, etc.) once your strength and confidence allow. 7. You may stave jointer the shower and let water strike your incision when you arrive home at least once daily. Do not take a tub bath, sit in a hot tub or go into a swimming pool until after your first recheck in the office. 8. You may resume previous diet. SPECIAL CARE INSTRUCTIONS: VERY IMPORTANT TO READ AND REVIEW A. Your surgical incision has been closed with a cosmetic suture under the skin that will dissolve in about 6 weeks. In 14 days, you can use a pair of clean scissors and cut the suture that is left outside of the skin at the ends of your incision. 1. The small skin tapes can be removed 7 days after surgery if they have not fallen off by that point. 2. You may keep the wound open to air as much as possible to promote healing after post-op day number 5 unless told otherwise by your doctor. 3. If you think the wound looks like it is becoming infected (redness or worsening drainage) and/or you are experiencing fever, chill or worsening back pain and muscle spasms, contact the office so that we may evaluate you as soon as possible. B. Complications are uncommon, but please contact us if you have any signs or symptoms of: 1. wound infection (fever higher than 102.5 degrees F, redness, separation of wound, drainage, or increasing pain from the incision) 2. blood clots in legs (pain, swelling, redness and warmth in legs) 3. urinary tract infection (fever higher than 102.5 degrees F, burning upon urination or increased frequency of urination) 4. nerve problems (inability to walk on your toes or heels, numbness, loss of bowel or bladder control) 5. any other symptoms that concern you C. Please call the office at if you have any concerns or questions about your operation or recovery. D. No smoking! Smoking drastically decreases the chance of a solid fusion. E. Do not take any anti-inflammatory medications (Indocin, Advil, Motrin, Aspirin, Naprosyn, etc.) as these may inhibit the chance of a solid fusion. Tylenol is okay to take for pain. MANAGING PAIN AFTER SPINAL SURGERY 1. Narcotic medication is intended for short-term use and will be provided for surgical pain. Surgical pain usually lasts for a period of 4-6 weeks. Narcotic medication includes Percocet, Vicodin, Darvocet, Tylenol #3 or Lortab. 2. Longer-term pain is more appropriately treated with non-narcotic medication such as Tylenol ES. 3. Muscle spasm is not appropriately treated with narcotics. Muscle relaxers such as Soma, Flexeril or Skelaxin can be used along with Tylenol ES. 4. Remember that we all live with some "aches and pains". This is not unusual or uncommon after an injury or as we get older. a. Back pain is expected and may include muscle spasms for 4 to 6 weeks after surgery. The pain should gradually improve. If the pain worsens for no apparent reason, please contact the office. b. Intermittent leg pain may also be experienced and should not be concerned about unless it worsens for no apparent reason. If so, please contact the office. 5. We will provide appropriate medication within the normal guidelines of their prescribed use. We will also be very cautious and aware of potential abuse and extended duration of patients' medication needs. a. Pain medications are for your comfort and to assist with sleep and rest so that the tissue can heal. They are not provided in order to return to normal activity and should not be used through the day. To do so or worsening pain at night can result from ongoing tissue damage and development of tolerance to the prescribed medicine. 6. Please allow 2-3 days to process refills. Prescriptions will not be mailed but must be picked up at the office. FOLLOW UP VISIT: Keep your scheduled follow-up appointment. Any questions, please call the office at . Pending Studies at Discharge: No Stand-Alone Forms: My [facility], Smoking Cessation Medications and DC Order Prescriptions: Continued venlafaxine 75 mg Tablet 75 mg PO QAM loperamide 2 mg Capsule 1 mg PO Q2D atorvastatin 10 mg Tablet 10 mg PO HS prazosin 1 mg Capsule 1 mg PO HS doxepin 75 mg Capsule 75 mg PO HS B-complex with vitamin C Tablet 1 tab PO DAILY bupropion HCl [Wellbutrin XL] 300 mg Tablet Extended Release 24 Hr 300 mg PO QAM eszopiclone [Lunesta] 3 mg Tablet 3 mg PO HS cholecalciferol (vitamin D3) [Vitamin D3] 50 mcg (2,000 unit) Capsule 50 mcg PO QAM venlafaxine 150 mg Tablet Extended Release 24hr 150 mg PO QAM turmeric root extract 500 mg Capsule 500 mg PO QAM [id number] carb-vit K 18 mg iron-400 mcg-500 mg Tablet 1 tab PO DAILY aspirin 81 mg Capsule 81 mg PO QAM tramadol 50 mg tablet 50 mg PO Q6H PRN (Reason: pain, moderate) Qty: 30 0RF oxycodone 5 mg tablet 5 mg PO Q6H PRN (Reason: pain) Qty: 30 0RF Discontinued acetaminophen 650 mg Tablet Extended Release 650 mg PO HS Discharge Orders: Discharge Order (Routine); Ordered 10/10/24 Ordered By: Torres Stoddard Admission Data Admit Date/Time: 10/08/24 09:22 Attending Provider: Torres Stoddard Admit Provider: Torres Stoddard Primary Care Provider: Emma Guzmán Other Providers: Cliff Chang; Shakira Sheppard; Ganga Cordoba; Andrea Arteaga; Cherry Collado; Kusum Mazariegos; Margarita Maier; Tom Irving; Osbaldo Jameson; Moises Marquis; Perico Coates; Ebony James; Humza Galicia; Soila Rothman; Sandy Reyes; Niyah Steinberg; Isabella Vela; Brian Cifuentes; Carmelita Maciel I.; Avery Stratton; Javier Mcarthur; Natalia Hernández; Antolin Bernal; Nilay Colon; Jayjay Romero; Shelbi Moise; Kathia Peraza; Adolfo Cates; Corby Chou; Laureen Pettit; Avery Harris; Nino Sandoval; David Mcmahon; Vidhya Brunner; Gege Jama; Gege Arreola; Lawrence Lang
--- NOTE | 2024-10-11 08:54 | Hospitalist Progress Note ---
Date of Service October 11, 2024 Assessment & Plan (1) Intractable low back pain: (2) Other spondylosis with radiculopathy, lumbar region: (3) Postoperative anemia due to acute blood loss: (4) Hypokalemia: Plan 74 year old female with PMH significant for hyperlipidemia, depression, anxiety, insomnia, IBS, GERD, and lumbar spondylosis with radiculopathy who is s/p L2-L4 decompression and fusion by Dr Stoddard on 10/03/2024. We have been consulted for elevated LFTS and medical management Lumbar spondylosis with radiculopathy with intractable post operative pain POD#8 L2-L4 decompression and fusion surgery under the care of Dr. Stoddard Per ortho for pain control, wound care, anticoagulation, activities Discontinue all APAP Appreciate orthospine input and recs Seems to be stable without significant pain and radiculopathy Elevated Transaminitis IMPROVED Suspect ISO of [place] virus serology is positive so could be the cause for abnormal LFTs new onset elevation LFT: -AST 1534--> 299--> 104 --> 37 -ALT 843 --> 481--> 296 --> 181 -ALP 211--> 165-->130 --> 107 no excessive APAP per pt, no alcohol ingestion, no supplements Hepatitis panel negative. Tylenol level normal. Other viral virus serology shows EBV capsid antigen elevated to 215 IgM antibodies negative liver US negative Urinary tract infection: No urinary symptoms; UA obtained and culture sent Urine cx reveals E. coli Discussed with patient at bedside will order cephalexin 500 mg twice daily x 5 days; received first dose here today. I do not Postop anemia due to acute blood loss Pre op Hgb 11.4 Post op Hgb 10.4 -> 9.1-->9.3 today Likely ISO surgery with EBL 100mL and TANGELA output 630mL Stable, patient asymptomatic Add on anemia panel Hypokalemia: serum K+ 3.4; ordered KCL 40mEq PO once check BMP in AM Leukocytosis Likely secondary to steroid use WBC 10.04, again no s/sx of infection but will monitor Hypoxia 2/2 narcotic administration pt currently requiring O2 have hydromorphone admin monitor closely, encourage ISP Hyperlipidemia hold statin in setting of elevated LFTS Depression, anxiety, insomnia Continue bupropion, doxepin, eszopiclone, venlafaxine Disposition: DVT Prophylaxis: TEDs in place per primary team Code Status: FULL CODE PCP: Emma Guzmán ([facility]) DC today 10/11 I spent a total of 56 minutes coordinating, documenting, and providing care for this patient excluding time spent inthe performance of separately billed services or time spent by another provider/QHP. Admission and Anticipated Discharge Date Admission Date: October 08, 2024 Supervising Physician Co-Signing Physician Notes 10/10/2024 The patient was seen and examined in medical floor She has been feeling better but still has some pain at the back and not yet ready to be discharged Denies any abdominal symptoms and her LFTs are much improved On examination Sitting at the edge of the bed without any acute distress Remains hemodynamically stable and unremarkable physical examination Her labs and imaging studies reviewed Her back pain and radiculopathy is stable and has significant improvement of liver function test Agree with assessment and plan as outlined above by Capri KUMAR and take the full responsibility of care in the hospital DR Hazel Arteaga 10/11/2024 Patient was seen and examined in medical floor. She has been doing much better today and denies any significant pain in the back or in the leg. Does not have any urinary symptoms On examination Remains hemodynamically stable Significant improvement of her LFTs She has noted to have UTI and has been getting treatment for that Back pain is stable and she will be discharged home this afternoon Agree with assessment plan as outlined above by JOSÉ Ross and take the full responsibility of care in the hospital DR Hazel Arteaga Subjective Pt sitting in her hospital bed in no apparent distress. Patient sitting in her hospital bed in no apparent distress Continues to have bursitis type pain which is about the same from yesterday; Dr. Stoddard has seen patient this morning. Patient denies headache, dizziness, shortness of breath, chest pain, N/V/D Transaminitis significantly improved; ALT back to normal range; AST and alk phos will take some time to improve Goal for discharge today and has been cleared by primary service. See A/P for further details. Review of Systems Review of Systems: Neuro: (-) Falls, trauma, slurred speech HEENT: (-) HAYES, dizziness, dysphagia, visual or auditory changes CV: (-) CP, palpitations, swelling Resp: (-) SOB GI: (-) appetite changes, N/V/D, bowel changes : (-) urinary changes Skin: (-) rashes Psych: (-) anxiety, depression Physical Exam Physical Exam: Neuro: AAOx4, PERRLA, no aphagia, memory changes, CNII-XII grossly intact HEENT: head normocephalic, moist mucus membranes CV: S1/S2, (-) M/G/R, (-) edema, cap refill < 3 seconds Resp: Lungs CTA in all jones. On RA GI: Abdomen S/NT/ND, Ax4 bowel sounds, (-) CVA tenderness Musculoskeletal: 5/5 B/L UE strength, 5/5 B/L LE strength. Uses a walker to ambulate Skin: (-) rashes , (-) erythema. Psych: euthymic mood Results & Data Results & Data Vital Signs (Past 12 Hours) Vital Signs Temp Pulse Resp BP Pulse Ox O2 Del Method 10/11/24 07:40 36.8 C 75 18 117/71 94 Room Air Laboratory Results Short CBC 10/11/24 Range/Units 07:08 WBC 10.04 (4.8-10.8) K/ul Hgb 9.3 L (12.0-16.0) g/dl Hct 27.8 L (37.0-47.0) % Plt Count 306 (130-400) K/uL BMP 10/11/24 07:08 Sodium 137 Potassium 3.9 Chloride 105 Carbon Dioxide 28 BUN 12 Creatinine 0.74 Glucose 89 Calcium 8.3 L Liver Function 10/08/24 10/11/24 Range/Units 13:05 07:08 Total Bilirubin 0.3 (0.2-1.0) mg/dl GGT 203 H (3-65) U/L AST 37 (13-39) U/L ALT 181 H (7-52) U/L Alkaline Phosphatase 107 H (34-104) U/L Albumin 3.0 L (3.4-5.0) gm/dl
[2024-10-11 09:25] VITALS: PULSE 91
[2024-10-12 01:52] LABS: Anti Mitochondrial Antibody NEGATIVE (NEGATIVE); Anti Nuclear Antibody Screen NEGATIVE (NEGATIVE); Hepatitis A Antibody IgM NON-REACTIVE (NON-REACTIVE); Hepatitis B Core Antibody IgM NON-REACTIVE (NON-REACTIVE)
== END 2024-10-11 11:38 | disposition home or self-care (01) | DRG 948 ==
LOC: INTOOBSV 09:22 → 3N 09:22